=== PATIENT | male | born 1965 | race Caucasian/White ===

== ENCOUNTER 2020-08-26 19:56 | Inpatient (IN) | payer MEDICAID ==
[2020-08-26] VITALS (16 sets, daily range): BP systolic 108–138; BP diastolic 69–97
[~2020-08-26] VITALS: Ht 175.3 cm; Wt 90.7 kg
[2020-08-26] MEDS ORDERED: IPRATROPIUM/ALBUTEROL 0.5-3(2.5)MG/3ML NEB HHN PRN (20:30)
[2020-08-26] MEDS ORDERED: MIDAZOLAM HCL 100 MG in SODIUM CHLORIDE 0.9% 80 ML IV PRN (21:00)
[2020-08-26] MEDS ORDERED: FENTANYL CITRATE/PF 2,500 MCG in SODIUM CHLORIDE 0.9% 200 ML IV PRN (21:00)
[2020-08-26 21:11] LABS: BG BASE EXCESS -1.8 mmol/L (-2.0-2.0); BG DEOXYHEMOGLOBIN 2.7 % (0.0-5.0); BG FRACTION INSPIRED OXYGEN 40; BG HCO3 ACT 23.6 mmol/L (22.0-26.0); BG METHEMOGLOBIN 0.2 % (0.0-1.5); BG OXYGEN SATURATION 97.3 % (92.0-98.5); BG OXYHEMOGLOBIN 96.1 % (94.0-97.0); BG PCO2 42.3 mmHg (35.0-45.0); BG PH 7.364 (7.350-7.450); BG PO2 94.9 mmHg (75.0-100.0); BG SAMPLE SITE RIGHT RADIAL; BG TOTAL HEMOGLOBIN 13.7 g/dL (12.0-18.0); BG VENT MODE VENT - AC
[2020-08-26 21:30] LABS: HEMATOCRIT. 39.6 % (42.0-52.0); HEMOGLOBIN. 12.9 g/dL (14.0-18.0); MEAN CORPUSCULAR HEMOGLOBIN 34.2 pg (28.0-32.0); MEAN CORPUSCULAR VOLUME 104.7 fL (80.0-94.0); MEAN PLATELET VOLUME 9.4 fl (7.4-10.4); PLATELET 163 x1000/uL (130-400); RED BLOOD CELL COUNT 3.78 mill/uL (4.7-6.1); RED CELL DISTRIBUTION WIDTH 14.2 % (11.6-14.6)
[2020-08-26] MEDS ORDERED: CEFEPIME 1,000 MG in DEXTROSE 5% WATER 50 ML IV NR (21:30)
[2020-08-26 21:39] LABS: CHLORIDE 102 mEq/L (98-107)
[2020-08-26] MEDS: DEXT 5%/0.45% NACL 1000ML 1,000 ML IV SCH (21:44)
[2020-08-26 21:45] LABS: INR 1.7; PROTHROMBIN TIME 17.2 sec (9.6-11.0)
[2020-08-26] MEDS: AMIODARONE HCL 900 MG in DEXT 5% WATER 482 ML IV SCH (21:45)
[2020-08-26] MEDS ORDERED: METRONIDAZOLE 500 MG PREMIX 100 ML IV NR (22:00)
[2020-08-26] MEDS ORDERED: VANCOMYCIN 2,000 MG in DEXT 5% WATER 500 ML IV NR (22:00)
[2020-08-26 23:34] LABS: PLATELET ESTIMATE NORMAL
[2020-08-27] VITALS (85 sets, daily range): BP systolic 88–126; BP diastolic 56–86
[2020-08-27] MEDS: PHENYLEPHRINE 100 MG in DEXT 5% WATER 240 ML IV PRN ×3 (00:35→16:40)
[2020-08-27] MEDS: VASOPRESSIN 20 UNIT in SODIUM CHLORIDE 0.9% 99 ML IV PRN ×2 (00:50→09:56)
[2020-08-27] MEDS: BLOOD SUGAR DIAGNOSTIC STRIP TEST SCH ×4 (01:13→18:02)
[2020-08-27 02:46] LABS: HEMATOCRIT. 38.2 % (42.0-52.0); HEMOGLOBIN. 12.6 g/dL (14.0-18.0); MEAN CORPUSCULAR HEMOGLOBIN 34.4 pg (28.0-32.0); MEAN CORPUSCULAR VOLUME 104.6 fL (80.0-94.0); MEAN PLATELET VOLUME 9.2 fl (7.4-10.4); PLATELET 187 x1000/uL (130-400); RED BLOOD CELL COUNT 3.65 mill/uL (4.7-6.1); RED CELL DISTRIBUTION WIDTH 14.4 % (11.6-14.6)
[2020-08-27 02:54] LABS: CHLORIDE 101 mEq/L (98-107)
[2020-08-27 02:59] LABS: PHOSPHORUS 1.5 mg/dL (2.5-4.9)
[2020-08-27 03:02] LABS: T4 FREE 1.15 ng/dL (0.76-1.46)
[2020-08-27] MEDS: METRONIDAZOLE 500 MG PREMIX 100 ML IV SCH ×3 (04:53→21:06)
[2020-08-27] MEDS: IPRATROPIUM/ALBUTEROL 0.5-3(2.5)MG/3ML NEB HHN SCH ×2 (08:48→12:38)
[2020-08-27 09:04] LABS: BG BASE EXCESS -0.1 mmol/L (-2.0-2.0); BG CARBOXYHEMOGLOBIN 0.5 % (0.5-1.5); BG DEOXYHEMOGLOBIN 1.6 % (0.0-5.0); BG FRACTION INSPIRED OXYGEN 40; BG HCO3 ACT 24.6 mmol/L (22.0-26.0); BG METHEMOGLOBIN 0.3 % (0.0-1.5); BG OXYGEN SATURATION 98.4 % (92.0-98.5); BG OXYHEMOGLOBIN 97.6 % (94.0-97.0); BG PCO2 40.4 mmHg (35.0-45.0); BG PH 7.403 (7.350-7.450); BG PO2 109.5 mmHg (75.0-100.0); BG SAMPLE SITE RIGHT RADIAL; BG TOTAL HEMOGLOBIN 12.6 g/dL (12.0-18.0); BG VENT MODE VENT - AC
[2020-08-27] MEDS: PANTOPRAZOLE SODIUM 40 MG/VIAL IV SCH (09:54)
[2020-08-27] MEDS: CEFEPIME 1,000 MG in DEXTROSE 5% WATER 50 ML IV SCH ×2 (10:00→20:06)
[2020-08-27 10:42] LABS: PLATELET ESTIMATE NORMAL
[2020-08-27] MEDS ORDERED: POTASSIUM PHOS,M-BASIC-D-BASIC 20 MMOL in DEXT 5% WATER 243.3333 ML IV SCH (11:00)
[2020-08-27] MEDS ORDERED: MAGNESIUM 2 G PREMIX 50 ML IV SCH (11:00)
[2020-08-27] MEDS: VANCOMYCIN 1250MG in DEXTROSE 5% WATER 250ML IV SCH ×2 (11:47→23:00)
[2020-08-27] MEDS ORDERED: LACTULOSE 20G/30ML UDC PO SCH (14:00)
[2020-08-27] MEDS ORDERED: ALBUMIN HUMAN 25GM/100ML (25%) IV NR (15:00)
[2020-08-27] MEDS ORDERED: IOHEXOL-350 100 ML BOTTLE ONE ×2 (15:15→16:15)
[2020-08-27] MEDS ORDERED: DIGOXIN 500MCG/2ML AMP IV SCH (18:00)
[2020-08-27 20:46] LABS: CLARITY URINE CLEAR (CLEAR); COLOR URINE DARK YELLOW (YELLOW); KETONES URINE NEGATIVE (NEGATIVE); LEUKOCYTE ESTERASE URINE 1+ (NEGATIVE); NITRITE URINE NEGATIVE (NEGATIVE); OCCULT BLOOD URINE 3+ (NEGATIVE); PH URINE 6.5 (4.5-8.0); PROTEIN URINE TRACE (NEGATIVE); SPECIFIC GRAVITY URINE 1.039 (1.005-1.030)
[2020-08-27] MEDS ORDERED: LACTULOSE 300 ML in WATER FOR IRRIGATION,STERILE 700 ML IR NR (21:00)
[2020-08-27] MEDS: AMIODARONE HCL 900 MG in DEXT 5% WATER 482 ML IV SCH (21:28)
[2020-08-27] MEDS: IPRATROPIUM BROMIDE (0.02%) 0.5MG/2.5ML NEB HHN SCH (21:58)
[2020-08-27] MEDS ORDERED: BACITRACIN 50,000 UNITS/VIAL ONE (22:25)
[2020-08-27] MEDS ORDERED: LIDOCAINE HCL 1% 20ML VIAL (Pyxis) INJ ONE (22:25)
[2020-08-27] MEDS ORDERED: BUPIVACAINE HCL/PF 0.5% (5MG/ML) 10ML ONE (22:25)
[2020-08-27] MEDS ORDERED: ALBUMIN HUMAN 25GM/100ML (25%) IV ONE (23:20)
[2020-08-27] MEDS ORDERED: SODIUM BICARBONATE 8.4% 1 MEQ/ML 50ML SYR IV ONE (23:21)
[2020-08-27] MEDS ORDERED: ROCURONIUM BROMIDE 10MG/ML VIAL 5ML IV ONE (23:24)
[2020-08-27] MEDS ORDERED: CALCIUM CHLORIDE 1GM/10ML SYR IV ONE (23:54)
[2020-08-28] VITALS (99 sets, daily range): BP systolic 6–219; BP diastolic 0–159
[2020-08-28] MEDS ORDERED: POTASSIUM CHLORIDE 40MEQ/20ML INJ IV ONE
[2020-08-28] MEDS ORDERED: MAGNESIUM SULFATE 5GM/10ML VIAL IV ONE (00:01)
[2020-08-28] MEDS ORDERED: EPINEPHRINE 10 MG in SODIUM CHLORIDE 0.9% 250 ML IV NR (01:00)
[2020-08-28 01:54] LABS: BG BASE EXCESS -1.4 mmol/L (-2.0-2.0); BG CARBOXYHEMOGLOBIN 0.1 % (0.5-1.5); BG DEOXYHEMOGLOBIN 3.3 % (0.0-5.0); BG FRACTION INSPIRED OXYGEN 40; BG HCO3 ACT 22.9 mmol/L (22.0-26.0); BG METHEMOGLOBIN 0.2 % (0.0-1.5); BG OXYGEN SATURATION 96.7 % (92.0-98.5); BG OXYHEMOGLOBIN 96.4 % (94.0-97.0); BG PCO2 37.1 mmHg (35.0-45.0); BG PH 7.409 (7.350-7.450); BG PO2 87.9 mmHg (75.0-100.0); BG TOTAL HEMOGLOBIN 10.5 g/dL (12.0-18.0); BG VENT MODE VENT - AC
[2020-08-28] MEDS: IPRATROPIUM BROMIDE (0.02%) 0.5MG/2.5ML NEB HHN SCH ×4 (02:03→20:44)
[2020-08-28 02:10] LABS: HEMATOCRIT. 29.6 % (42.0-52.0); HEMOGLOBIN. 9.8 g/dL (14.0-18.0); MEAN CORPUSCULAR HEMOGLOBIN 33.3 pg (28.0-32.0); MEAN CORPUSCULAR VOLUME 100.9 fL (80.0-94.0); PLATELET 141 x1000/uL (130-400); RED BLOOD CELL COUNT 2.93 mill/uL (4.7-6.1); RED CELL DISTRIBUTION WIDTH 16.4 % (11.6-14.6)
[2020-08-28 02:12] LABS: CHLORIDE 105 mEq/L (98-107)
[2020-08-28 02:18] LABS: INR 1.7; PARTIAL THROMBOPLASTIN TIME 51.3 sec (23.4-31.0); PHOSPHORUS 2.6 mg/dL (2.5-4.9); PROTHROMBIN TIME 17.2 sec (9.6-11.0)
[2020-08-28] MEDS: DEXT 5%/0.45% NACL 1000ML 1,000 ML IV SCH ×2 (02:25→02:37)
[2020-08-28 02:33] LABS: DIGOXIN 1.6 ng/mL (0.9-2.0)
[2020-08-28 02:50] LABS: NUCLEATED RED BLOOD CELLS 1 /100 WBC
[2020-08-28 02:51] LABS: PLATELET ESTIMATE NORMAL
[2020-08-28] MEDS: PHENYLEPHRINE 100 MG in DEXT 5% WATER 240 ML IV PRN ×3 (04:53→20:25)
[2020-08-28] MEDS: METRONIDAZOLE 500 MG PREMIX 100 ML IV SCH ×3 (05:01→21:10)
[2020-08-28] MEDS: BLOOD SUGAR DIAGNOSTIC STRIP TEST SCH ×4 (05:33→18:00)
[2020-08-28] MEDS: PANTOPRAZOLE SODIUM 40 MG/VIAL IV SCH (08:54)
[2020-08-28] MEDS: CEFEPIME 1,000 MG in DEXTROSE 5% WATER 50 ML IV SCH ×2 (08:55→20:23)
[2020-08-28 09:22] LABS: BG BASE EXCESS 1.3 mmol/L (-2.0-2.0); BG CARBOXYHEMOGLOBIN 0.4 % (0.5-1.5); BG DEOXYHEMOGLOBIN 1.4 % (0.0-5.0); BG FRACTION INSPIRED OXYGEN 40; BG HCO3 ACT 24.7 mmol/L (22.0-26.0); BG METHEMOGLOBIN 0.3 % (0.0-1.5); BG OXYGEN SATURATION 98.6 % (92.0-98.5); BG OXYHEMOGLOBIN 97.9 % (94.0-97.0); BG PCO2 34.7 mmHg (35.0-45.0); BG PO2 134.7 mmHg (75.0-100.0); BG SAMPLE SITE RIGHT RADIAL; BG TOTAL HEMOGLOBIN 10.4 g/dL (12.0-18.0); BG VENT MODE VENT - AC
[2020-08-28] MEDS ORDERED: DIGOXIN 500MCG/2ML AMP IV PRN (09:30)
[2020-08-28] MEDS: VANCOMYCIN 1250MG in DEXTROSE 5% WATER 250ML IV SCH ×2 (11:20→22:00)
[2020-08-28] MEDS: AMIODARONE HCL 900 MG in DEXT 5% WATER 482 ML IV SCH (14:30)
[2020-08-28 20:46] LABS: HEMATOCRIT 28.1 % (42.0-52.0); HEMOGLOBIN 9.2 g/dL (14.0-18.0)
[2020-08-28 20:58] LABS: INR 1.6; PROTHROMBIN TIME 16.4 sec (9.6-11.0)
[2020-08-29] VITALS (70 sets, daily range): BP systolic 85–135; BP diastolic 38–170
[2020-08-29] MEDS: IPRATROPIUM BROMIDE (0.02%) 0.5MG/2.5ML NEB HHN SCH ×4 (01:39→20:32)
[2020-08-29] MEDS: VASOPRESSIN 20 UNIT in SODIUM CHLORIDE 0.9% 99 ML IV PRN (01:51)
[2020-08-29] MEDS: BLOOD SUGAR DIAGNOSTIC STRIP TEST SCH ×4 (05:19→18:14)
[2020-08-29] MEDS: METRONIDAZOLE 500 MG PREMIX 100 ML IV SCH ×3 (05:20→22:09)
[2020-08-29 08:04] LABS: BG BASE EXCESS 1.8 mmol/L (-2.0-2.0); BG CARBOXYHEMOGLOBIN 0.3 % (0.5-1.5); BG DEOXYHEMOGLOBIN 3.8 % (0.0-5.0); BG FRACTION INSPIRED OXYGEN 35; BG HCO3 ACT 24.5 mmol/L (22.0-26.0); BG METHEMOGLOBIN 0.3 % (0.0-1.5); BG OXYGEN SATURATION 96.2 % (92.0-98.5); BG OXYHEMOGLOBIN 95.6 % (94.0-97.0); BG PCO2 31.3 mmHg (35.0-45.0); BG PH 7.511 (7.350-7.450); BG PO2 79.2 mmHg (75.0-100.0); BG SAMPLE SITE RIGHT RADIAL; BG TOTAL HEMOGLOBIN 9.4 g/dL (12.0-18.0); BG TOTAL RESPIRATORY RATE 22 b/min; BG VENT MODE VENT - AC
[2020-08-29 08:19] LABS: INR 1.6; PROTHROMBIN TIME 16.5 sec (9.6-11.0)
[2020-08-29] MEDS: PANTOPRAZOLE SODIUM 40 MG/VIAL IV SCH (08:27)
[2020-08-29] MEDS: CEFEPIME 1,000 MG in DEXTROSE 5% WATER 50 ML IV SCH ×2 (08:27→20:57)
[2020-08-29] MEDS: DEXT 5%/0.45% NACL 1000ML 1,000 ML IV SCH (08:28)
[2020-08-29 08:33] LABS: HEMATOCRIT. 26.5 % (42.0-52.0); HEMOGLOBIN. 8.8 g/dL (14.0-18.0); MEAN CORPUSCULAR HEMOGLOBIN 33.4 pg (28.0-32.0); MEAN CORPUSCULAR VOLUME 100.8 fL (80.0-94.0); MEAN PLATELET VOLUME 8.9 fl (7.4-10.4); PLATELET 170 x1000/uL (130-400); RED BLOOD CELL COUNT 2.63 mill/uL (4.7-6.1)
[2020-08-29 09:32] LABS: NUCLEATED RED BLOOD CELLS 1 /100 WBC; PLATELET ESTIMATE NORMAL
[2020-08-29 09:44] LABS: CHLORIDE 106 mEq/L (98-107)
[2020-08-29 09:55] LABS: PHOSPHORUS 1.1 mg/dL (2.5-4.9)
[2020-08-29 09:57] LABS: TOTAL IRON BINDING CAPACITY 159 ug/dL (250-450)
[2020-08-29] MEDS: VANCOMYCIN 1250MG in DEXTROSE 5% WATER 250ML IV SCH ×2 (11:08→22:09)
[2020-08-29 11:47] LABS: FERRITIN 283 ng/mL (22-322)
[2020-08-29] MEDS ORDERED: ALBUMIN HUMAN 25GM/100ML (25%) IV NR (13:00)
[2020-08-29 16:54] LABS: VITAMIN B12 SERUM >2000 pg/mL pg/mL (211-911)
[2020-08-29] MEDS: AMIODARONE HCL 900 MG in DEXT 5% WATER 482 ML IV SCH (20:56)
[2020-08-30] VITALS (63 sets, daily range): BP systolic 64–156; BP diastolic 19–97
[2020-08-30] MEDS: IPRATROPIUM BROMIDE (0.02%) 0.5MG/2.5ML NEB HHN SCH ×5 (02:31→20:57)
[2020-08-30] MEDS: DEXT 5%/0.45% NACL 1000ML 1,000 ML IV SCH (04:43)
[2020-08-30] MEDS: BLOOD SUGAR DIAGNOSTIC STRIP TEST SCH ×5 (05:03→23:29)
[2020-08-30] MEDS: METRONIDAZOLE 500 MG PREMIX 100 ML IV SCH ×3 (05:03→21:44)
[2020-08-30 05:53] LABS: CHLORIDE 106 mEq/L (98-107)
[2020-08-30 05:59] LABS: INR 1.6; PROTHROMBIN TIME 16.8 sec (9.6-11.0)
[2020-08-30 06:04] LABS: PHOSPHORUS 1.4 mg/dL (2.5-4.9)
[2020-08-30 06:12] LABS: HEMOGLOBIN. 7.9 g/dL (14.0-18.0); MEAN CORPUSCULAR HEMOGLOBIN 33.2 pg (28.0-32.0); MEAN CORPUSCULAR VOLUME 100.9 fL (80.0-94.0); MEAN PLATELET VOLUME 9.3 fl (7.4-10.4); PLATELET 178 x1000/uL (130-400); RED BLOOD CELL COUNT 2.38 mill/uL (4.7-6.1); RED CELL DISTRIBUTION WIDTH 16.6 % (11.6-14.6)
[2020-08-30] MEDS: PANTOPRAZOLE SODIUM 40 MG/VIAL IV SCH ×2 (08:55→21:37)
[2020-08-30] MEDS: CEFEPIME 1,000 MG in DEXTROSE 5% WATER 50 ML IV SCH ×2 (08:55→20:47)
[2020-08-30 09:12] LABS: BG CARBOXYHEMOGLOBIN 0.5 % (0.5-1.5); BG DEOXYHEMOGLOBIN 1.1 % (0.0-5.0); BG FRACTION INSPIRED OXYGEN 35; BG HCO3 ACT 26.1 mmol/L (22.0-26.0); BG METHEMOGLOBIN 0.5 % (0.0-1.5); BG OXYGEN SATURATION 98.9 % (92.0-98.5); BG OXYHEMOGLOBIN 97.9 % (94.0-97.0); BG PCO2 33.4 mmHg (35.0-45.0); BG PO2 141.7 mmHg (75.0-100.0); BG SAMPLE SITE LEFT RADIAL; BG TOTAL HEMOGLOBIN 8.7 g/dL (12.0-18.0); BG TOTAL RESPIRATORY RATE 22 b/min; BG VENT MODE VENT - AC
[2020-08-30] MEDS: VANCOMYCIN 1250MG in DEXTROSE 5% WATER 250ML IV SCH ×2 (10:37→22:39)
[2020-08-30] MEDS: FOLIC ACID 1MG TABLET NG SCH (10:43)
[2020-08-30] MEDS: METOPROLOL TARTRATE 25MG TABLET PO SCH ×2 (10:43→20:53)
[2020-08-30] MEDS: ASCORBIC ACID 500 MG TABLET NG SCH (10:43)
[2020-08-30] MEDS ORDERED: POTASSIUM PHOS,M-BASIC-D-BASIC 30 MMOL in DEXT 5% WATER 500 ML IV NR (11:00)
[2020-08-30 13:47] LABS: PLATELET ESTIMATE NORMAL
[2020-08-30] MEDS: SUCRALFATE 1 G/10 ML UDC NG SCH ×3 (14:07→23:29)
[2020-08-30] MEDS: FERROUS SULFATE 300MG/5ML UDC NG SCH (17:17)
[2020-08-30] MEDS: LACTULOSE 20G/30ML UDC NG SCH (20:52)
[2020-08-30] MEDS: SENNOSIDES/DOCUSATE SOD 8.6/50MG TABLET NG SCH (20:53)
[2020-08-31] VITALS (75 sets, daily range): BP systolic 80–176; BP diastolic 29–105
[2020-08-31] MEDS: IPRATROPIUM BROMIDE (0.02%) 0.5MG/2.5ML NEB HHN SCH ×4 (01:43→20:43)
[2020-08-31] MEDS: DEXT 5%/0.45% NACL 1000ML 1,000 ML IV SCH ×2 (04:30→22:00)
[2020-08-31] MEDS: METRONIDAZOLE 500 MG PREMIX 100 ML IV SCH ×3 (05:48→22:00)
[2020-08-31 05:49] LABS: BASOPHILS % 0.5 % (0.0-2.0); HEMATOCRIT. 27.9 % (42.0-52.0); HEMOGLOBIN. 9.4 g/dL (14.0-18.0); MEAN CORPUSCULAR HEMOGLOBIN 34.4 pg (28.0-32.0); MEAN CORPUSCULAR VOLUME 101.7 fL (80.0-94.0); MEAN PLATELET VOLUME 9.6 fl (7.4-10.4); MONOCYTES % 12.2 % (2.0-8.0); NEUTROPHILS % 77.3 % (40.0-76.0); PLATELET 264 x1000/uL (130-400); RED BLOOD CELL COUNT 2.74 mill/uL (4.7-6.1); RED CELL DISTRIBUTION WIDTH 16.8 % (11.6-14.6)
[2020-08-31 05:54] LABS: CHLORIDE 109 mEq/L (98-107)
[2020-08-31 06:03] LABS: PHOSPHORUS 2.3 mg/dL (2.5-4.9)
[2020-08-31 06:27] LABS: INR 1.6; PROTHROMBIN TIME 16.2 sec (9.6-11.0)
[2020-08-31] MEDS: SUCRALFATE 1 G/10 ML UDC NG SCH ×3 (06:48→17:37)
[2020-08-31] MEDS: BLOOD SUGAR DIAGNOSTIC STRIP TEST SCH ×3 (06:48→17:37)
[2020-08-31 07:46] LABS: BG BASE EXCESS 0.6 mmol/L (-2.0-2.0); BG CARBOXYHEMOGLOBIN 0.3 % (0.5-1.5); BG DEOXYHEMOGLOBIN 1.7 % (0.0-5.0); BG FRACTION INSPIRED OXYGEN 35; BG HCO3 ACT 23.5 mmol/L (22.0-26.0); BG METHEMOGLOBIN 0.3 % (0.0-1.5); BG OXYGEN SATURATION 98.3 % (92.0-98.5); BG OXYHEMOGLOBIN 97.7 % (94.0-97.0); BG PCO2 31.5 mmHg (35.0-45.0); BG PH 7.491 (7.350-7.450); BG PO2 125.7 mmHg (75.0-100.0); BG SAMPLE SITE ALINE; BG TOTAL RESPIRATORY RATE 22 b/min; BG VENT MODE VENT - AC
[2020-08-31] MEDS: PANTOPRAZOLE SODIUM 40 MG/VIAL IV SCH ×2 (08:38→21:23)
[2020-08-31] MEDS: FERROUS SULFATE 300MG/5ML UDC NG SCH ×2 (08:38→17:37)
[2020-08-31] MEDS: FOLIC ACID 1MG TABLET NG SCH (08:38)
[2020-08-31] MEDS: THIAMINE HCL 100MG TABLET PO SCH (08:38)
[2020-08-31] MEDS: ASCORBIC ACID 500 MG TABLET NG SCH (08:39)
[2020-08-31] MEDS: METOPROLOL TARTRATE 25MG TABLET PO SCH ×2 (08:39→21:23)
[2020-08-31] MEDS: CEFEPIME 1,000 MG in DEXTROSE 5% WATER 50 ML IV SCH ×2 (10:36→20:46)
[2020-08-31] MEDS: VANCOMYCIN 1250MG in DEXTROSE 5% WATER 250ML IV SCH (10:37)
[2020-08-31] MEDS ORDERED: HYDROCODONE/ACETAMINOPHEN 5/325MG TABLET PO PRN (11:30)
[2020-08-31 12:33] LABS: BG BASE EXCESS -1.5 mmol/L (-2.0-2.0); BG CARBOXYHEMOGLOBIN 0.3 % (0.5-1.5); BG DEOXYHEMOGLOBIN 1.5 % (0.0-5.0); BG FRACTION INSPIRED OXYGEN 35; BG HCO3 ACT 20.9 mmol/L (22.0-26.0); BG METHEMOGLOBIN 0.2 % (0.0-1.5); BG OXYGEN SATURATION 98.5 % (92.0-98.5); BG PCO2 27.2 mmHg (35.0-45.0); BG PH 7.503 (7.350-7.450); BG PO2 137.2 mmHg (75.0-100.0); BG SAMPLE SITE ALINE; BG TOTAL HEMOGLOBIN 9.4 g/dL (12.0-18.0); BG VENT MODE VENT - CPAP
[2020-08-31] MEDS: MIDODRINE HCL 5MG TABLET PO SCH ×3 (13:00→17:37)
[2020-08-31] MEDS: SENNOSIDES/DOCUSATE SOD 8.6/50MG TABLET NG SCH (21:23)
[2020-08-31] MEDS: LACTULOSE 20G/30ML UDC NG SCH (21:23)
[2020-09-01] VITALS (71 sets, daily range): BP systolic 76–193; BP diastolic 38–87
[2020-09-01] MEDS: VANCOMYCIN 1250MG in DEXTROSE 5% WATER 250ML IV SCH (00:08)
[2020-09-01] MEDS: SUCRALFATE 1 G/10 ML UDC NG SCH ×4 (00:13→18:18)
[2020-09-01] MEDS: BLOOD SUGAR DIAGNOSTIC STRIP TEST SCH ×4 (00:20→18:19)
[2020-09-01] MEDS ORDERED: METOPROLOL TARTRATE 25MG TABLET PO NR (01:30)
[2020-09-01] MEDS: IPRATROPIUM BROMIDE (0.02%) 0.5MG/2.5ML NEB HHN SCH ×4 (02:12→20:13)
[2020-09-01 04:37] LABS: HEMATOCRIT. 31.5 % (42.0-52.0); HEMOGLOBIN. 10.5 g/dL (14.0-18.0); MEAN CORPUSCULAR HEMOGLOBIN 33.7 pg (28.0-32.0); MEAN PLATELET VOLUME 8.8 fl (7.4-10.4); PLATELET 360 x1000/uL (130-400); RED BLOOD CELL COUNT 3.12 mill/uL (4.7-6.1)
[2020-09-01 04:43] LABS: CHLORIDE 107 mEq/L (98-107)
[2020-09-01] MEDS ORDERED: DIGOXIN 500MCG/2ML AMP IV SCH (08:30)
[2020-09-01 08:35] LABS: PHOSPHORUS 2.4 mg/dL (2.5-4.9)
[2020-09-01] MEDS: METOPROLOL TARTRATE 50MG TABLET PO SCH ×2 (08:40→21:00)
[2020-09-01] MEDS: FERROUS SULFATE 300MG/5ML UDC NG SCH ×2 (08:44→18:18)
[2020-09-01] MEDS: PANTOPRAZOLE SODIUM 40 MG/VIAL IV SCH ×2 (08:44→21:43)
[2020-09-01] MEDS: FOLIC ACID 1MG TABLET NG SCH (08:45)
[2020-09-01] MEDS: ASCORBIC ACID 500 MG TABLET NG SCH (08:45)
[2020-09-01] MEDS: MIDODRINE HCL 5MG TABLET PO SCH ×3 (08:45→17:00)
[2020-09-01] MEDS: THIAMINE HCL 100MG TABLET PO SCH (08:45)
[2020-09-01] MEDS ORDERED: LORAZEPAM 2MG/ML CPJ IV PRN (09:15)
[2020-09-01 10:10] LABS: PLATELET ESTIMATE NORMAL
[2020-09-01] MEDS ORDERED: POTASSIUM PHOS,M-BASIC-D-BASIC 10 MMOL in DEXT 5% WATER 246.6667 ML IV NR (11:00)
[2020-09-01] MEDS ORDERED: BACITRACIN 50,000 UNITS/VIAL ONE (13:39)
[2020-09-01] MEDS: DIGOXIN 500MCG/2ML AMP IV SCH (18:18)
[2020-09-01] MEDS: DEXT 5%/0.45% NACL 1000ML 1,000 ML IV SCH (18:18)
[2020-09-01] MEDS: MORPHINE SULFATE 2 MG/ML CPJ (NOT FOR IM USE) IV PRN (19:00)
[2020-09-01] MEDS: SENNOSIDES/DOCUSATE SOD 8.6/50MG TABLET NG SCH ×2 (21:00→21:39)
[2020-09-01] MEDS: LACTULOSE 20G/30ML UDC NG SCH (21:39)
[2020-09-02] VITALS (90 sets, daily range): BP systolic 56–150; BP diastolic 39–77
[2020-09-02] MEDS ORDERED: NOREPINEPHRINE 8MG/250ML PMX 250 ML IV PRN
[2020-09-02] MEDS ORDERED: NOREPINEPHRINE 8 MG in DEXTROSE 5% WATER 250 ML IV PRN (00:45)
[2020-09-02] MEDS: DEXT 5%/0.45% NACL 1000ML 1,000 ML IV SCH ×3 (01:22→20:57)
[2020-09-02] MEDS: SUCRALFATE 1 G/10 ML UDC NG SCH ×4 (01:22→17:33)
[2020-09-02] MEDS: BLOOD SUGAR DIAGNOSTIC STRIP TEST SCH ×4 (01:44→17:33)
[2020-09-02] MEDS: IPRATROPIUM BROMIDE (0.02%) 0.5MG/2.5ML NEB HHN SCH ×3 (02:06→20:12)
[2020-09-02] MEDS: MORPHINE SULFATE 2 MG/ML CPJ (NOT FOR IM USE) IV PRN (02:28)
[2020-09-02 05:40] LABS: CHLORIDE 111 mEq/L (98-107); HEMATOCRIT. 29.9 % (42.0-52.0); MEAN CORPUSCULAR HEMOGLOBIN 33.6 pg (28.0-32.0); MEAN PLATELET VOLUME 8.9 fl (7.4-10.4); PLATELET 366 x1000/uL (130-400); RED BLOOD CELL COUNT 2.99 mill/uL (4.7-6.1)
[2020-09-02 06:02] LABS: DIGOXIN 0.8 ng/mL (0.9-2.0)
[2020-09-02 08:07] LABS: BG BASE EXCESS -1.6 mmol/L (-2.0-2.0); BG CARBOXYHEMOGLOBIN 0.7 % (0.5-1.5); BG DEOXYHEMOGLOBIN 6.2 % (0.0-5.0); BG HCO3 ACT 21.1 mmol/L (22.0-26.0); BG METHEMOGLOBIN 0.2 % (0.0-1.5); BG OXYGEN SATURATION 93.7 % (92.0-98.5); BG OXYHEMOGLOBIN 92.9 % (94.0-97.0); BG PCO2 29.1 mmHg (35.0-45.0); BG PH 7.478 (7.350-7.450); BG PO2 65.6 mmHg (75.0-100.0); BG SAMPLE SITE ALINE; BG TOTAL HEMOGLOBIN 11.1 g/dL (12.0-18.0); BG VENT MODE VENT - AC
[2020-09-02] MEDS: METOPROLOL TARTRATE 50MG TABLET PO SCH ×2 (09:00→20:53)
[2020-09-02] MEDS: FOLIC ACID 1MG TABLET NG SCH (09:06)
[2020-09-02] MEDS: FERROUS SULFATE 300MG/5ML UDC NG SCH ×2 (09:06→16:50)
[2020-09-02] MEDS: PANTOPRAZOLE SODIUM 40 MG/VIAL IV SCH ×2 (09:06→20:53)
[2020-09-02] MEDS: ASCORBIC ACID 500 MG TABLET NG SCH (09:06)
[2020-09-02] MEDS: MIDODRINE HCL 5MG TABLET PO SCH ×3 (09:06→16:50)
[2020-09-02] MEDS: THIAMINE HCL 100MG TABLET PO SCH (09:08)
[2020-09-02 10:43] LABS: PLATELET ESTIMATE NORMAL
[2020-09-02] MEDS: DIGOXIN 500MCG/2ML AMP IV SCH (17:33)
[2020-09-02] MEDS: SENNOSIDES/DOCUSATE SOD 8.6/50MG TABLET NG SCH (20:53)
[2020-09-02] MEDS: LACTULOSE 20G/30ML UDC NG SCH (20:57)
[2020-09-03] VITALS (86 sets, daily range): BP systolic 72–127; BP diastolic 16–89
[2020-09-03] MEDS: BLOOD SUGAR DIAGNOSTIC STRIP TEST SCH ×5 (00:29→23:33)
[2020-09-03] MEDS: IPRATROPIUM BROMIDE (0.02%) 0.5MG/2.5ML NEB HHN SCH ×4 (02:04→20:20)
[2020-09-03] MEDS: SUCRALFATE 1 G/10 ML UDC NG SCH ×5 (03:40→23:34)
[2020-09-03 05:37] LABS: HEMATOCRIT. 30.2 % (42.0-52.0); HEMOGLOBIN. 9.9 g/dL (14.0-18.0); MEAN CORPUSCULAR HEMOGLOBIN 33.1 pg (28.0-32.0); MEAN CORPUSCULAR VOLUME 100.5 fL (80.0-94.0); MEAN PLATELET VOLUME 9.1 fl (7.4-10.4); PLATELET 388 x1000/uL (130-400); RED CELL DISTRIBUTION WIDTH 16.9 % (11.6-14.6)
[2020-09-03 05:49] LABS: CHLORIDE 111 mEq/L (98-107)
[2020-09-03 07:07] LABS: PLATELET ESTIMATE NORMAL
[2020-09-03] MEDS: DEXT 5%/0.45% NACL 1000ML 1,000 ML IV SCH ×2 (07:43→17:05)
[2020-09-03 08:09] LABS: BG BASE EXCESS -0.9 mmol/L (-2.0-2.0); BG CARBOXYHEMOGLOBIN 0.1 % (0.5-1.5); BG DEOXYHEMOGLOBIN 1.1 % (0.0-5.0); BG HCO3 ACT 22.4 mmol/L (22.0-26.0); BG METHEMOGLOBIN 0.3 % (0.0-1.5); BG OXYGEN SATURATION 98.9 % (92.0-98.5); BG OXYHEMOGLOBIN 98.5 % (94.0-97.0); BG PCO2 32.2 mmHg (35.0-45.0); BG PH 7.461 (7.350-7.450); BG PO2 142.6 mmHg (75.0-100.0); BG SAMPLE SITE RIGHT RADIAL; BG TOTAL HEMOGLOBIN 9.4 g/dL (12.0-18.0); BG VENT MODE VENT - AC
[2020-09-03] MEDS: METOPROLOL TARTRATE 50MG TABLET PO SCH (09:00)
[2020-09-03] MEDS: THIAMINE HCL 100MG TABLET PO SCH (09:59)
[2020-09-03] MEDS: FERROUS SULFATE 300MG/5ML UDC NG SCH ×2 (09:59→17:10)
[2020-09-03] MEDS: PANTOPRAZOLE SODIUM 40 MG/VIAL IV SCH ×2 (09:59→21:13)
[2020-09-03] MEDS: FOLIC ACID 1MG TABLET NG SCH (09:59)
[2020-09-03] MEDS: ASCORBIC ACID 500 MG TABLET NG SCH (09:59)
[2020-09-03] MEDS: MIDODRINE HCL 5MG TABLET PO SCH ×3 (10:00→17:10)
[2020-09-03] MEDS ORDERED: POTASSIUM CHLORIDE 20MEQ TABLET SR PO SCH (12:15)
[2020-09-03] MEDS: DIGOXIN 500MCG/2ML AMP IV SCH (17:10)
[2020-09-03 17:40] LABS: BG BASE EXCESS -1.5 mmol/L (-2.0-2.0); BG CARBOXYHEMOGLOBIN 0.3 % (0.5-1.5); BG DEOXYHEMOGLOBIN 1.3 % (0.0-5.0); BG METHEMOGLOBIN 0.2 % (0.0-1.5); BG OXYGEN SATURATION 98.7 % (92.0-98.5); BG OXYHEMOGLOBIN 98.2 % (94.0-97.0); BG PCO2 28.5 mmHg (35.0-45.0); BG PH 7.486 (7.350-7.450); BG PO2 136.2 mmHg (75.0-100.0); BG SAMPLE SITE ALINE; BG TOTAL HEMOGLOBIN 10.8 g/dL (12.0-18.0); BG VENT MODE VENT - SIMV
[2020-09-03] MEDS: SENNOSIDES/DOCUSATE SOD 8.6/50MG TABLET NG SCH (21:13)
[2020-09-03] MEDS: METOPROLOL TARTRATE 25MG TABLET PO SCH (21:13)
[2020-09-03] MEDS: LACTULOSE 20G/30ML UDC NG SCH (21:13)
[2020-09-04] VITALS (46 sets, daily range): BP systolic 68–124; BP diastolic 34–99
[2020-09-04] MEDS: MORPHINE SULFATE 2 MG/ML CPJ (NOT FOR IM USE) IV PRN (01:01)
[2020-09-04] MEDS: IPRATROPIUM BROMIDE (0.02%) 0.5MG/2.5ML NEB HHN SCH ×4 (02:15→21:15)
[2020-09-04 05:54] LABS: BASOPHILS % 1.2 % (0.0-2.0); EOSINOPHILS % 1.8 % (0.0-5.0); HEMATOCRIT. 31.9 % (42.0-52.0); HEMOGLOBIN. 10.7 g/dL (14.0-18.0); LYMPHOCYTES % 9.2 % (20.0-50.0); MEAN CORPUSCULAR HEMOGLOBIN 33.8 pg (28.0-32.0); MEAN PLATELET VOLUME 8.9 fl (7.4-10.4); MONOCYTES % 7.3 % (2.0-8.0); NEUTROPHILS % 80.5 % (40.0-76.0); PLATELET 383 x1000/uL (130-400); RED BLOOD CELL COUNT 3.15 mill/uL (4.7-6.1); RED CELL DISTRIBUTION WIDTH 16.7 % (11.6-14.6)
[2020-09-04] MEDS: BLOOD SUGAR DIAGNOSTIC STRIP TEST SCH ×3 (06:08→17:33)
[2020-09-04] MEDS: SUCRALFATE 1 G/10 ML UDC NG SCH ×3 (06:08→17:33)
[2020-09-04 07:26] LABS: CHLORIDE 111 mEq/L (98-107)
[2020-09-04 07:48] LABS: DIGOXIN 0.8 ng/mL (0.9-2.0)
[2020-09-04 08:18] LABS: BG BASE EXCESS -0.2 mmol/L (-2.0-2.0); BG CARBOXYHEMOGLOBIN 0.3 % (0.5-1.5); BG DEOXYHEMOGLOBIN 1.7 % (0.0-5.0); BG FRACTION INSPIRED OXYGEN 35; BG HCO3 ACT 22.8 mmol/L (22.0-26.0); BG METHEMOGLOBIN 0.3 % (0.0-1.5); BG OXYGEN SATURATION 98.3 % (92.0-98.5); BG OXYHEMOGLOBIN 97.7 % (94.0-97.0); BG PCO2 32.3 mmHg (35.0-45.0); BG PH 7.466 (7.350-7.450); BG PO2 135.6 mmHg (75.0-100.0); BG SAMPLE SITE RIGHT RADIAL; BG VENT MODE VENT - SIMV
[2020-09-04] MEDS: FERROUS SULFATE 300MG/5ML UDC NG SCH ×2 (09:20→17:33)
[2020-09-04] MEDS: PANTOPRAZOLE SODIUM 40 MG/VIAL IV SCH ×2 (09:20→21:35)
[2020-09-04] MEDS: FOLIC ACID 1MG TABLET NG SCH (09:21)
[2020-09-04] MEDS: MIDODRINE HCL 5MG TABLET PO SCH ×3 (09:21→17:33)
[2020-09-04] MEDS: ASCORBIC ACID 500 MG TABLET NG SCH (09:21)
[2020-09-04] MEDS: THIAMINE HCL 100MG TABLET PO SCH (09:21)
[2020-09-04] MEDS: METOPROLOL TARTRATE 25MG TABLET PO SCH ×2 (09:22→21:36)
[2020-09-04 11:31] LABS: BG BASE EXCESS -1.6 mmol/L (-2.0-2.0); BG CARBOXYHEMOGLOBIN 0.3 % (0.5-1.5); BG DEOXYHEMOGLOBIN 1.3 % (0.0-5.0); BG FRACTION INSPIRED OXYGEN 35; BG METHEMOGLOBIN 0.4 % (0.0-1.5); BG OXYGEN SATURATION 98.7 % (92.0-98.5); BG PCO2 28.9 mmHg (35.0-45.0); BG SAMPLE SITE RIGHT RADIAL; BG TOTAL HEMOGLOBIN 11.2 g/dL (12.0-18.0); BG VENT MODE VENT - CPAP
[2020-09-04] MEDS: DEXT 5%/0.45% NACL 1000ML 1,000 ML IV SCH ×2 (13:00→14:12)
[2020-09-04] MEDS: DIGOXIN 500MCG/2ML AMP IV SCH (17:33)
[2020-09-04] MEDS: LACTULOSE 20G/30ML UDC NG SCH (21:35)
[2020-09-04] MEDS: SENNOSIDES/DOCUSATE SOD 8.6/50MG TABLET NG SCH (21:36)
[2020-09-05] VITALS (43 sets, daily range): BP systolic 85–129; BP diastolic 35–75
[2020-09-05] MEDS: SUCRALFATE 1 G/10 ML UDC NG SCH ×5 (00:57→23:23)
[2020-09-05] MEDS: IPRATROPIUM BROMIDE (0.02%) 0.5MG/2.5ML NEB HHN SCH ×4 (02:27→20:30)
[2020-09-05 05:00] LABS: CHLORIDE 111 mEq/L (98-107)
[2020-09-05 05:01] LABS: HEMATOCRIT. 31.6 % (42.0-52.0); HEMOGLOBIN. 10.6 g/dL (14.0-18.0); MEAN CORPUSCULAR VOLUME 101.1 fL (80.0-94.0); MEAN PLATELET VOLUME 8.8 fl (7.4-10.4); PLATELET 376 x1000/uL (130-400); RED BLOOD CELL COUNT 3.12 mill/uL (4.7-6.1); RED CELL DISTRIBUTION WIDTH 16.5 % (11.6-14.6)
[2020-09-05] MEDS: BLOOD SUGAR DIAGNOSTIC STRIP TEST SCH ×5 (05:32→23:23)
[2020-09-05] MEDS: METOPROLOL TARTRATE 25MG TABLET PO SCH ×2 (09:00→13:45)
[2020-09-05] MEDS: MIDODRINE HCL 5MG TABLET PO SCH ×4 (09:00→17:39)
[2020-09-05 10:27] LABS: PLATELET ESTIMATE NORMAL
[2020-09-05] MEDS: PANTOPRAZOLE SODIUM 40 MG/VIAL IV SCH ×2 (10:29→20:43)
[2020-09-05] MEDS: PIPERACILLIN/TAZOBACTAM 3.375 G in DEXT 5% WATER 100 ML IV SCH ×3 (13:45→23:23)
[2020-09-05] MEDS: FOLIC ACID 1MG TABLET NG SCH (13:46)
[2020-09-05] MEDS: THIAMINE HCL 100MG TABLET PO SCH (13:46)
[2020-09-05] MEDS: FERROUS SULFATE 300MG/5ML UDC NG SCH ×2 (13:46→17:39)
[2020-09-05] MEDS: ASCORBIC ACID 500 MG TABLET NG SCH (13:46)
[2020-09-05] MEDS: DEXT 5%/0.45% NACL 1000ML 1,000 ML IV SCH ×3 (14:07→20:56)
[2020-09-05] MEDS ORDERED: DIGOXIN 500MCG/2ML AMP IV PRN (15:15)
[2020-09-05 16:54] LABS: CLARITY URINE CLEAR (CLEAR); COLOR URINE DARK YELLOW (YELLOW); KETONES URINE NEGATIVE (NEGATIVE); LEUKOCYTE ESTERASE URINE TRACE (NEGATIVE); NITRITE URINE NEGATIVE (NEGATIVE); OCCULT BLOOD URINE 1+ (NEGATIVE); PH URINE 5.5 (4.5-8.0); PROTEIN URINE 1+ (NEGATIVE); SPECIFIC GRAVITY URINE 1.028 (1.005-1.030); UROBILINOGEN URINE 0.2 E.U./dL (0.2-1.0)
[2020-09-05] MEDS: LACTULOSE 20G/30ML UDC NG SCH (20:43)
[2020-09-05] MEDS: SENNOSIDES/DOCUSATE SOD 8.6/50MG TABLET NG SCH (20:43)
[2020-09-06] VITALS (24 sets, daily range): BP systolic 84–150; BP diastolic 18–78
[2020-09-06] MEDS: IPRATROPIUM BROMIDE (0.02%) 0.5MG/2.5ML NEB HHN SCH ×2 (02:00→08:49)
[2020-09-06] MEDS: BLOOD SUGAR DIAGNOSTIC STRIP TEST SCH ×4 (05:30→23:00)
[2020-09-06] MEDS: SUCRALFATE 1 G/10 ML UDC NG SCH ×4 (05:30→23:00)
[2020-09-06] MEDS: PIPERACILLIN/TAZOBACTAM 3.375 G in DEXT 5% WATER 100 ML IV SCH ×4 (05:30→23:00)
[2020-09-06] MEDS: DEXT 5%/0.45% NACL 1000ML 1,000 ML IV SCH (05:31)
[2020-09-06 05:41] LABS: HEMATOCRIT. 32.7 % (42.0-52.0); HEMOGLOBIN. 10.9 g/dL (14.0-18.0); MEAN CORPUSCULAR HEMOGLOBIN 33.5 pg (28.0-32.0); PLATELET 382 x1000/uL (130-400); RED BLOOD CELL COUNT 3.24 mill/uL (4.7-6.1); RED CELL DISTRIBUTION WIDTH 16.3 % (11.6-14.6)
[2020-09-06 05:47] LABS: CHLORIDE 109 mEq/L (98-107)
[2020-09-06 05:58] LABS: PHOSPHORUS 2.6 mg/dL (2.5-4.9)
[2020-09-06] MEDS: FOLIC ACID 1MG TABLET NG SCH (09:04)
[2020-09-06] MEDS: METOPROLOL TARTRATE 25MG TABLET PO SCH ×2 (09:04→20:41)
[2020-09-06] MEDS: FERROUS SULFATE 300MG/5ML UDC NG SCH ×2 (09:04→17:00)
[2020-09-06] MEDS: THIAMINE HCL 100MG TABLET PO SCH (09:04)
[2020-09-06] MEDS: MIDODRINE HCL 5MG TABLET PO SCH ×3 (09:04→17:00)
[2020-09-06] MEDS: ASCORBIC ACID 500 MG TABLET NG SCH (09:04)
[2020-09-06] MEDS: PANTOPRAZOLE SODIUM 40 MG/VIAL IV SCH ×2 (09:05→20:43)
[2020-09-06] MEDS ORDERED: POTASSIUM CHLORIDE 20MEQ TABLET SR PO NR (10:45)
[2020-09-06 10:56] LABS: PLATELET ESTIMATE NORMAL
[2020-09-06] MEDS: RISPERIDONE 1MG TABLET PO SCH (17:11)
[2020-09-06] MEDS: LORAZEPAM 2MG/ML CPJ IV PRN ×2 (17:11→23:07)
[2020-09-06] MEDS: DIGOXIN 500MCG/2ML AMP IV SCH (17:39)
[2020-09-06] MEDS: LACTULOSE 20G/30ML UDC NG SCH (20:43)
[2020-09-06] MEDS: SENNOSIDES/DOCUSATE SOD 8.6/50MG TABLET NG SCH (20:43)
[2020-09-06] MEDS ORDERED: ZOLPIDEM TARTRATE 5MG TABLET PO PRN (21:00)
[2020-09-07] VITALS (22 sets, daily range): BP systolic 3–121; BP diastolic -3–76
[2020-09-07] MEDS: DEXT 5%/0.45% NACL KCL 20MEQ/L 1,000 ML IV SCH ×3 (01:10→22:12)
[2020-09-07] MEDS: LORAZEPAM 2MG/ML CPJ IV PRN (03:53)
[2020-09-07] MEDS: SUCRALFATE 1 G/10 ML UDC NG SCH ×4 (05:06→23:11)
[2020-09-07 05:45] LABS: CHLORIDE 109 mEq/L (98-107)
[2020-09-07 05:53] LABS: INR 1.6; PARTIAL THROMBOPLASTIN TIME 41.6 sec (23.4-31.0); PROTHROMBIN TIME 16.8 sec (9.6-11.0)
[2020-09-07 06:00] LABS: HEMATOCRIT. 32.5 % (42.0-52.0); HEMOGLOBIN. 10.5 g/dL (14.0-18.0); MEAN CORPUSCULAR HEMOGLOBIN 33.2 pg (28.0-32.0); MEAN CORPUSCULAR VOLUME 102.3 fL (80.0-94.0); MEAN PLATELET VOLUME 9.3 fl (7.4-10.4); PLATELET 392 x1000/uL (130-400); RED BLOOD CELL COUNT 3.18 mill/uL (4.7-6.1); RED CELL DISTRIBUTION WIDTH 16.8 % (11.6-14.6)
[2020-09-07] MEDS: BLOOD SUGAR DIAGNOSTIC STRIP TEST SCH ×4 (06:32→23:11)
[2020-09-07] MEDS: PIPERACILLIN/TAZOBACTAM 3.375 G in DEXT 5% WATER 100 ML IV SCH ×4 (06:32→23:11)
[2020-09-07] MEDS: MIDODRINE HCL 5MG TABLET PO SCH ×3 (08:53→17:06)
[2020-09-07] MEDS: FERROUS SULFATE 300MG/5ML UDC NG SCH ×2 (08:54→17:06)
[2020-09-07] MEDS: METOPROLOL TARTRATE 25MG TABLET PO SCH ×2 (08:54→20:22)
[2020-09-07] MEDS: ASCORBIC ACID 500 MG TABLET NG SCH (08:55)
[2020-09-07] MEDS: FOLIC ACID 1MG TABLET NG SCH (08:55)
[2020-09-07] MEDS: THIAMINE HCL 100MG TABLET PO SCH (08:55)
[2020-09-07] MEDS: RISPERIDONE 1MG TABLET PO SCH ×2 (08:55→17:06)
[2020-09-07] MEDS: PANTOPRAZOLE SODIUM 40 MG/VIAL IV SCH ×2 (09:09→20:22)
[2020-09-07] MEDS ORDERED: LIDOCAINE HCL 1% 20ML VIAL (Pyxis) INJ ONE (10:10)
[2020-09-07] MEDS ORDERED: BACITRACIN 15GM TUBE TOP ONE ×2 (10:11→11:49)
[2020-09-07] MEDS ORDERED: BUPIVACAINE HCL/PF 0.5% (5MG/ML) 10ML ONE (10:12)
[2020-09-07] MEDS ORDERED: BACITRACIN 50,000 UNITS/VIAL ONE ×2 (10:12→11:20)
[2020-09-07 10:22] LABS: PLATELET ESTIMATE NORMAL
[2020-09-07] MEDS ORDERED: ROCURONIUM BROMIDE 10MG/ML VIAL 5ML IV ONE (10:59)
[2020-09-07] MEDS ORDERED: HYDROMORPHONE HCL/PF 2MG/ML (OR) ONE (10:59)
[2020-09-07] MEDS ORDERED: DEXAMETHASONE 4MG/ML 1ML VIAL ONE (11:00)
[2020-09-07] MEDS ORDERED: VASOPRESSIN 20 UNIT/ML 1ML ONE (11:04)
[2020-09-07] MEDS ORDERED: AMIODARONE HCL 50MG/ML 3ML VIAL IV ONE (11:20)
[2020-09-07] MEDS ORDERED: ALBUMIN HUMAN 25GM/100ML (25%) IV ONE (11:20)
[2020-09-07] MEDS ORDERED: NEOSTIGMINE METHYLSULFATE 1MG/ML 10 ML VIAL ONE (12:00)
[2020-09-07] MEDS: METOPROLOL TARTRATE 5MG/5ML VIAL IV PRN (13:34)
[2020-09-07] MEDS: DIGOXIN 500MCG/2ML AMP IV SCH (17:06)
[2020-09-07] MEDS: SENNOSIDES/DOCUSATE SOD 8.6/50MG TABLET NG SCH (20:22)
[2020-09-07] MEDS: LACTULOSE 20G/30ML UDC NG SCH (20:22)
[2020-09-07] MEDS: INSULIN LISPRO 100 UNITS/ML SUBCUT SCH (23:48)
[2020-09-08] VITALS (69 sets, daily range): BP systolic 2–133; BP diastolic -12–105
[2020-09-08 05:00] LABS: HEMATOCRIT. 31.9 % (42.0-52.0); HEMOGLOBIN. 10.3 g/dL (14.0-18.0); MEAN CORPUSCULAR HEMOGLOBIN 33.1 pg (28.0-32.0); MEAN CORPUSCULAR VOLUME 102.4 fL (80.0-94.0); MEAN PLATELET VOLUME 9.1 fl (7.4-10.4); PLATELET 380 x1000/uL (130-400); RED BLOOD CELL COUNT 3.12 mill/uL (4.7-6.1); RED CELL DISTRIBUTION WIDTH 16.2 % (11.6-14.6)
[2020-09-08] MEDS: SUCRALFATE 1 G/10 ML UDC NG SCH ×4 (05:19→18:23)
[2020-09-08] MEDS: INSULIN LISPRO 100 UNITS/ML SUBCUT SCH ×3 (05:19→18:00)
[2020-09-08] MEDS: BLOOD SUGAR DIAGNOSTIC STRIP TEST SCH ×3 (05:19→18:39)
[2020-09-08] MEDS: PIPERACILLIN/TAZOBACTAM 3.375 G in DEXT 5% WATER 100 ML IV SCH ×4 (05:20→23:53)
[2020-09-08 05:42] LABS: CHLORIDE 108 mEq/L (98-107)
[2020-09-08 06:14] LABS: DIGOXIN 0.8 ng/mL (0.9-2.0)
[2020-09-08 06:53] LABS: PLATELET ESTIMATE NORMAL
[2020-09-08] MEDS: PANTOPRAZOLE SODIUM 40 MG/VIAL IV SCH ×2 (09:14→21:32)
[2020-09-08] MEDS: RISPERIDONE 1MG TABLET PO SCH ×2 (09:15→16:23)
[2020-09-08] MEDS: MIDODRINE HCL 5MG TABLET PO SCH ×3 (09:15→16:24)
[2020-09-08] MEDS: FERROUS SULFATE 300MG/5ML UDC NG SCH ×2 (09:15→16:23)
[2020-09-08] MEDS: FOLIC ACID 1MG TABLET NG SCH (09:15)
[2020-09-08] MEDS: THIAMINE HCL 100MG TABLET PO SCH (09:16)
[2020-09-08] MEDS: ASCORBIC ACID 500 MG TABLET NG SCH (09:16)
[2020-09-08] MEDS: METOPROLOL TARTRATE 25MG TABLET PO SCH ×2 (09:16→21:33)
[2020-09-08] MEDS: INSULIN GLARGINE UD 100 UNITS/ML SYR SUBCUT SCH ×2 (09:18→21:50)
[2020-09-08] MEDS: DEXT 5%/0.45% NACL KCL 20MEQ/L 1,000 ML IV SCH ×2 (09:43→16:23)
[2020-09-08] MEDS: LORAZEPAM 2MG/ML CPJ IV PRN ×3 (10:02→23:53)
[2020-09-08] MEDS ORDERED: LIDOCAINE HCL 1% 20ML VIAL (Pyxis) INJ ONE (10:17)
[2020-09-08] MEDS: DIGOXIN 500MCG/2ML AMP IV SCH (18:22)
[2020-09-08] MEDS: LACTULOSE 20G/30ML UDC NG SCH (21:32)
[2020-09-08] MEDS: SENNOSIDES/DOCUSATE SOD 8.6/50MG TABLET NG SCH (21:32)
[2020-09-08] MEDS: ACETAMINOPHEN 325MG TABLET PO PRN (21:32)
[2020-09-09] VITALS (33 sets, daily range): BP systolic 78–133; BP diastolic 46–86
[2020-09-09] MEDS: DEXT 5%/0.45% NACL KCL 20MEQ/L 1,000 ML IV SCH ×3 (03:57→23:13)
[2020-09-09 05:04] LABS: BASOPHILS % 0.3 % (0.0-2.0); EOSINOPHILS % 2.7 % (0.0-5.0); HEMATOCRIT. 27.5 % (42.0-52.0); LYMPHOCYTES % 7.7 % (20.0-50.0); MEAN CORPUSCULAR HEMOGLOBIN 32.9 pg (28.0-32.0); MEAN CORPUSCULAR VOLUME 100.6 fL (80.0-94.0); MONOCYTES % 6.9 % (2.0-8.0); NEUTROPHILS % 82.4 % (40.0-76.0); PLATELET 361 x1000/uL (130-400); RED BLOOD CELL COUNT 2.73 mill/uL (4.7-6.1); RED CELL DISTRIBUTION WIDTH 16.1 % (11.6-14.6)
[2020-09-09 05:12] LABS: CHLORIDE 111 mEq/L (98-107)
[2020-09-09] MEDS: SUCRALFATE 1 G/10 ML UDC NG SCH ×3 (05:48→19:05)
[2020-09-09] MEDS: PIPERACILLIN/TAZOBACTAM 3.375 G in DEXT 5% WATER 100 ML IV SCH ×3 (05:48→19:15)
[2020-09-09] MEDS: INSULIN LISPRO 100 UNITS/ML SUBCUT SCH ×4 (06:00→18:00)
[2020-09-09] MEDS: BLOOD SUGAR DIAGNOSTIC STRIP TEST SCH ×4 (06:00→18:00)
[2020-09-09] MEDS: LORAZEPAM 2MG/ML CPJ IV PRN (06:03)
[2020-09-09] MEDS: METOPROLOL TARTRATE 25MG TABLET PO SCH ×2 (09:00→21:00)
[2020-09-09] MEDS: PANTOPRAZOLE SODIUM 40 MG/VIAL IV SCH ×2 (09:27→21:15)
[2020-09-09] MEDS: FERROUS SULFATE 300MG/5ML UDC NG SCH ×2 (09:27→17:41)
[2020-09-09] MEDS: RISPERIDONE 1MG TABLET PO SCH ×2 (09:27→17:41)
[2020-09-09] MEDS: ASCORBIC ACID 500 MG TABLET NG SCH (09:37)
[2020-09-09] MEDS: FOLIC ACID 1MG TABLET NG SCH (09:37)
[2020-09-09] MEDS: INSULIN GLARGINE UD 100 UNITS/ML SYR SUBCUT SCH ×2 (09:40→21:25)
[2020-09-09] MEDS: THIAMINE HCL 100MG TABLET PO SCH (09:40)
[2020-09-09] MEDS: MIDODRINE HCL 5MG TABLET PO SCH ×3 (09:41→17:51)
[2020-09-09] MEDS: RIFAXIMIN 550 MG TABLET PO SCH ×2 (11:51→21:17)
[2020-09-09] MEDS: LACTULOSE 20G/30ML UDC PO SCH ×2 (12:14→21:18)
[2020-09-09] MEDS: DIGOXIN 500MCG/2ML AMP IV SCH (19:05)
[2020-09-09] MEDS: SENNOSIDES/DOCUSATE SOD 8.6/50MG TABLET NG SCH (21:15)
[2020-09-10] VITALS (12 sets, daily range): BP systolic 93–115; BP diastolic 31–75
[2020-09-10] MEDS: SUCRALFATE 1 G/10 ML UDC NG SCH ×4 (02:12→18:23)
[2020-09-10] MEDS: PIPERACILLIN/TAZOBACTAM 3.375 G in DEXT 5% WATER 100 ML IV SCH ×2 (02:12→07:05)
[2020-09-10 05:51] LABS: CHLORIDE 109 mEq/L (98-107)
[2020-09-10 05:57] LABS: EOSINOPHILS % 4.2 % (0.0-5.0); HEMATOCRIT. 29.7 % (42.0-52.0); LYMPHOCYTES % 9.2 % (20.0-50.0); MEAN CORPUSCULAR HEMOGLOBIN 34.1 pg (28.0-32.0); MEAN CORPUSCULAR VOLUME 100.8 fL (80.0-94.0); MEAN PLATELET VOLUME 9.1 fl (7.4-10.4); MONOCYTES % 7.6 % (2.0-8.0); PLATELET 348 x1000/uL (130-400); RED BLOOD CELL COUNT 2.94 mill/uL (4.7-6.1); RED CELL DISTRIBUTION WIDTH 16.1 % (11.6-14.6)
[2020-09-10] MEDS: INSULIN LISPRO 100 UNITS/ML SUBCUT SCH ×4 (06:00→18:00)
[2020-09-10] MEDS: BLOOD SUGAR DIAGNOSTIC STRIP TEST SCH ×4 (06:00→18:00)
[2020-09-10] MEDS: METOPROLOL TARTRATE 25MG TABLET PO SCH ×2 (09:00→20:43)
[2020-09-10] MEDS: INSULIN GLARGINE UD 100 UNITS/ML SYR SUBCUT SCH ×2 (10:00→22:00)
[2020-09-10] MEDS: PANTOPRAZOLE SODIUM 40 MG/VIAL IV SCH ×2 (12:34→20:42)
[2020-09-10] MEDS: FERROUS SULFATE 300MG/5ML UDC NG SCH ×2 (12:35→18:23)
[2020-09-10] MEDS: ASCORBIC ACID 500 MG TABLET NG SCH (12:36)
[2020-09-10] MEDS: LACTULOSE 20G/30ML UDC PO SCH ×2 (12:36→20:42)
[2020-09-10] MEDS: FOLIC ACID 1MG TABLET NG SCH (12:36)
[2020-09-10] MEDS: MIDODRINE HCL 5MG TABLET PO SCH ×3 (12:38→19:23)
[2020-09-10] MEDS: THIAMINE HCL 100MG TABLET PO SCH (12:39)
[2020-09-10] MEDS: RIFAXIMIN 550 MG TABLET PO SCH ×2 (12:39→20:42)
[2020-09-10] MEDS: RISPERIDONE 1MG TABLET PO SCH ×2 (12:39→18:24)
[2020-09-10] MEDS: DEXT 5%/0.45% NACL KCL 20MEQ/L 1,000 ML IV SCH ×2 (12:40→19:18)
[2020-09-10] MEDS: DIGOXIN 500MCG/2ML AMP IV SCH ×3 (18:00→19:19)
[2020-09-10] MEDS: SENNOSIDES/DOCUSATE SOD 8.6/50MG TABLET NG SCH (20:42)
[2020-09-11] VITALS (12 sets, daily range): BP systolic 85–135; BP diastolic 47–68
[2020-09-11] MEDS: BLOOD SUGAR DIAGNOSTIC STRIP TEST SCH ×4 (00:18→17:14)
[2020-09-11] MEDS: SUCRALFATE 1 G/10 ML UDC NG SCH ×4 (00:43→18:09)
[2020-09-11] MEDS: DEXT 5%/0.45% NACL KCL 20MEQ/L 1,000 ML IV SCH ×2 (05:58→10:42)
[2020-09-11] MEDS: INSULIN LISPRO 100 UNITS/ML SUBCUT SCH ×4 (06:00→17:14)
[2020-09-11 06:14] LABS: CHLORIDE 109 mEq/L (98-107)
[2020-09-11 06:20] LABS: HEMATOCRIT. 30.1 % (42.0-52.0); HEMOGLOBIN. 9.9 g/dL (14.0-18.0); MEAN CORPUSCULAR HEMOGLOBIN 33.1 pg (28.0-32.0); MEAN CORPUSCULAR VOLUME 100.6 fL (80.0-94.0); MEAN PLATELET VOLUME 9.4 fl (7.4-10.4); PLATELET 365 x1000/uL (130-400)
[2020-09-11 06:21] LABS: PHOSPHORUS 2.5 mg/dL (2.5-4.9)
[2020-09-11] MEDS: METOPROLOL TARTRATE 25MG TABLET PO SCH ×2 (09:00→21:00)
[2020-09-11 09:39] LABS: PLATELET ESTIMATE NORMAL
[2020-09-11] MEDS: INSULIN GLARGINE UD 100 UNITS/ML SYR SUBCUT SCH ×2 (10:00→22:18)
[2020-09-11] MEDS: PANTOPRAZOLE SODIUM 40 MG/VIAL IV SCH ×2 (10:23→22:18)
[2020-09-11] MEDS: FOLIC ACID 1MG TABLET NG SCH (10:23)
[2020-09-11] MEDS: LACTULOSE 20G/30ML UDC PO SCH ×2 (10:23→22:17)
[2020-09-11] MEDS: THIAMINE HCL 100MG TABLET PO SCH (10:25)
[2020-09-11] MEDS: FERROUS SULFATE 300MG/5ML UDC NG SCH ×2 (10:25→18:07)
[2020-09-11] MEDS: ASCORBIC ACID 500 MG TABLET NG SCH (10:25)
[2020-09-11] MEDS: RIFAXIMIN 550 MG TABLET PO SCH ×2 (10:25→22:20)
[2020-09-11] MEDS: RISPERIDONE 1MG TABLET PO SCH ×2 (10:25→18:08)
[2020-09-11] MEDS: MIDODRINE HCL 5MG TABLET PO SCH ×3 (10:26→18:09)
[2020-09-11] MEDS ORDERED: MAGNESIUM 2 G PREMIX 50 ML IV NR (13:00)
[2020-09-11] MEDS ORDERED: DIGOXIN 125MCG TABLET PO SCH (18:00)
[2020-09-11] MEDS: SENNOSIDES/DOCUSATE SOD 8.6/50MG TABLET NG SCH (22:18)
[2020-09-12] VITALS (10 sets, daily range): BP systolic 84–129; BP diastolic 40–79
[2020-09-12] MEDS: BLOOD SUGAR DIAGNOSTIC STRIP TEST SCH ×4 (00:26→18:09)
[2020-09-12] MEDS: SUCRALFATE 1 G/10 ML UDC NG SCH ×4 (00:41→18:03)
[2020-09-12] MEDS: DEXT 5%/0.45% NACL KCL 20MEQ/L 1,000 ML IV SCH ×3 (00:41→21:16)
[2020-09-12] MEDS: INSULIN LISPRO 100 UNITS/ML SUBCUT SCH ×4 (06:00→18:00)
[2020-09-12] MEDS: METOPROLOL TARTRATE 25MG TABLET PO SCH ×4 (09:00→21:00)
[2020-09-12 09:05] LABS: CHLORIDE 110 mEq/L (98-107)
[2020-09-12] MEDS: LACTULOSE 20G/30ML UDC PO SCH ×2 (09:09→21:16)
[2020-09-12] MEDS: ASCORBIC ACID 500 MG TABLET NG SCH (09:10)
[2020-09-12] MEDS: MIDODRINE HCL 5MG TABLET PO SCH ×3 (09:10→18:03)
[2020-09-12] MEDS: RIFAXIMIN 550 MG TABLET PO SCH ×2 (09:10→21:16)
[2020-09-12] MEDS: PANTOPRAZOLE SODIUM 40 MG/VIAL IV SCH ×2 (09:10→21:16)
[2020-09-12] MEDS: FERROUS SULFATE 300MG/5ML UDC NG SCH ×2 (09:10→18:03)
[2020-09-12] MEDS: THIAMINE HCL 100MG TABLET PO SCH (09:10)
[2020-09-12] MEDS: RISPERIDONE 1MG TABLET PO SCH ×2 (09:10→18:04)
[2020-09-12] MEDS: FOLIC ACID 1MG TABLET NG SCH (09:18)
[2020-09-12 09:25] LABS: DIGOXIN 0.6 ng/mL (0.9-2.0)
[2020-09-12] MEDS: INSULIN GLARGINE UD 100 UNITS/ML SYR SUBCUT SCH (12:44)
[2020-09-12] MEDS ORDERED: DIGOXIN 500MCG/2ML AMP IV NR (14:54)
[2020-09-12] MEDS: SENNOSIDES/DOCUSATE SOD 8.6/50MG TABLET NG SCH (21:16)
[2020-09-13] VITALS (9 sets, daily range): BP systolic 82–115; BP diastolic 50–75
[2020-09-13] MEDS: SUCRALFATE 1 G/10 ML UDC NG SCH ×4 (00:16→19:02)
[2020-09-13] MEDS: INSULIN GLARGINE UD 100 UNITS/ML SYR SUBCUT SCH ×3 (00:17→22:41)
[2020-09-13] MEDS: BLOOD SUGAR DIAGNOSTIC STRIP TEST SCH ×4 (05:57→18:45)
[2020-09-13] MEDS: INSULIN LISPRO 100 UNITS/ML SUBCUT SCH ×4 (05:57→18:00)
[2020-09-13 07:17] LABS: BASOPHILS % 0.7 % (0.0-2.0); EOSINOPHILS % 3.3 % (0.0-5.0); HEMATOCRIT. 36.5 % (42.0-52.0); HEMOGLOBIN. 11.8 g/dL (14.0-18.0); LYMPHOCYTES % 10.1 % (20.0-50.0); MEAN CORPUSCULAR HEMOGLOBIN 33.6 pg (28.0-32.0); MEAN CORPUSCULAR VOLUME 103.9 fL (80.0-94.0); MEAN PLATELET VOLUME 9.6 fl (7.4-10.4); MONOCYTES % 7.7 % (2.0-8.0); NEUTROPHILS % 78.2 % (40.0-76.0); PLATELET 477 x1000/uL (130-400); RED BLOOD CELL COUNT 3.51 mill/uL (4.7-6.1)
[2020-09-13 07:23] LABS: CHLORIDE 105 mEq/L (98-107)
[2020-09-13] MEDS: DEXT 5%/0.45% NACL KCL 20MEQ/L 1,000 ML IV SCH ×3 (08:02→18:25)
[2020-09-13] MEDS: PANTOPRAZOLE SODIUM 40 MG/VIAL IV SCH ×2 (09:00→22:05)
[2020-09-13] MEDS: FERROUS SULFATE 300MG/5ML UDC NG SCH ×2 (09:02→17:12)
[2020-09-13] MEDS: ASCORBIC ACID 500 MG TABLET NG SCH (09:02)
[2020-09-13] MEDS: FOLIC ACID 1MG TABLET NG SCH (09:02)
[2020-09-13] MEDS: LACTULOSE 20G/30ML UDC PO SCH ×2 (09:03→22:05)
[2020-09-13] MEDS: METOPROLOL TARTRATE 25MG TABLET PO SCH ×2 (09:07→22:11)
[2020-09-13] MEDS: MIDODRINE HCL 5MG TABLET PO SCH ×3 (09:08→19:03)
[2020-09-13] MEDS: THIAMINE HCL 100MG TABLET PO SCH (09:09)
[2020-09-13] MEDS: RISPERIDONE 1MG TABLET PO SCH ×2 (09:09→17:13)
[2020-09-13] MEDS: RIFAXIMIN 550 MG TABLET PO SCH ×2 (09:09→22:04)
[2020-09-13] MEDS: CEFTRIAXONE 2 G in DEXTROSE 5% WATER 50 ML IV SCH ×2 (16:50→18:29)
[2020-09-13] MEDS ORDERED: VANCOMYCIN 1250MG in DEXTROSE 5% WATER 250ML IV NR (19:00)
[2020-09-13] MEDS ORDERED: LORAZEPAM 2MG/ML CPJ IV PRN (21:45)
[2020-09-13] MEDS: SENNOSIDES/DOCUSATE SOD 8.6/50MG TABLET NG SCH (22:05)
[2020-09-14] VITALS: BP 95/76
[2020-09-14] MEDS: BLOOD SUGAR DIAGNOSTIC STRIP TEST SCH ×4 (00:29→17:09)
[2020-09-14] MEDS: SUCRALFATE 1 G/10 ML UDC NG SCH ×4 (00:29→17:24)
[2020-09-14 04:00] VITALS: BP 98/59
[2020-09-14 05:56] LABS: BASOPHILS % 1.7 % (0.0-2.0); EOSINOPHILS % 5.9 % (0.0-5.0); HEMATOCRIT. 30.2 % (42.0-52.0); HEMOGLOBIN. 10.1 g/dL (14.0-18.0); LYMPHOCYTES % 7.7 % (20.0-50.0); MEAN CORPUSCULAR VOLUME 101.7 fL (80.0-94.0); MEAN PLATELET VOLUME 9.1 fl (7.4-10.4); MONOCYTES % 8.9 % (2.0-8.0); NEUTROPHILS % 75.8 % (40.0-76.0); PLATELET 380 x1000/uL (130-400); RED BLOOD CELL COUNT 2.97 mill/uL (4.7-6.1); RED CELL DISTRIBUTION WIDTH 15.3 % (11.6-14.6)
[2020-09-14 05:57] LABS: CHLORIDE 108 mEq/L (98-107)
[2020-09-14] MEDS: INSULIN LISPRO 100 UNITS/ML SUBCUT SCH ×4 (06:00→17:09)
[2020-09-14] MEDS ORDERED: VANCOMYCIN 1250MG in DEXTROSE 5% WATER 250ML IV SCH ×2 (07:00→08:00)
[2020-09-14 08:00] VITALS: BP 94/67
[2020-09-14] MEDS: METOPROLOL TARTRATE 25MG TABLET PO SCH ×2 (09:00→21:23)
[2020-09-14] MEDS: FERROUS SULFATE 300MG/5ML UDC NG SCH ×2 (09:21→17:24)
[2020-09-14] MEDS: VANCOMYCIN 1 G PREMIX 200 ML IV SCH ×2 (09:22→20:43)
[2020-09-14] MEDS: RIFAXIMIN 550 MG TABLET PO SCH (09:22)
[2020-09-14] MEDS: RISPERIDONE 1MG TABLET PO SCH ×2 (09:22→17:25)
[2020-09-14] MEDS: PANTOPRAZOLE SODIUM 40 MG/VIAL IV SCH ×2 (09:22→21:21)
[2020-09-14] MEDS: LACTULOSE 20G/30ML UDC PO SCH ×2 (09:22→21:23)
[2020-09-14] MEDS: THIAMINE HCL 100MG TABLET PO SCH (09:23)
[2020-09-14] MEDS: FOLIC ACID 1MG TABLET NG SCH (09:23)
[2020-09-14] MEDS: MIDODRINE HCL 5MG TABLET PO SCH ×3 (09:23→17:25)
[2020-09-14] MEDS: ASCORBIC ACID 500 MG TABLET NG SCH (09:23)
[2020-09-14] MEDS: INSULIN GLARGINE UD 100 UNITS/ML SYR SUBCUT SCH ×2 (11:06→21:51)
[2020-09-14 12:00] VITALS: BP 100/61
[2020-09-14] MEDS: DEXT 5%/0.45% NACL KCL 20MEQ/L 1,000 ML IV SCH ×2 (12:55→23:32)
[2020-09-14 16:00] VITALS: BP 102/67
[2020-09-14] MEDS: SENNOSIDES/DOCUSATE SOD 8.6/50MG TABLET NG SCH (21:23)
[2020-09-15] MEDS: SUCRALFATE 1 G/10 ML UDC NG SCH ×5 (00:16→23:34)
[2020-09-15] MEDS: BLOOD SUGAR DIAGNOSTIC STRIP TEST SCH ×5 (00:16→23:35)
[2020-09-15 05:34] LABS: CHLORIDE 109 mEq/L (98-107)
[2020-09-15] MEDS: INSULIN LISPRO 100 UNITS/ML SUBCUT SCH ×5 (06:00→23:35)
[2020-09-15 06:25] LABS: BASOPHILS % 1.8 % (0.0-2.0); EOSINOPHILS % 7.3 % (0.0-5.0); HEMATOCRIT. 31.2 % (42.0-52.0); HEMOGLOBIN. 10.3 g/dL (14.0-18.0); LYMPHOCYTES % 12.1 % (20.0-50.0); MEAN CORPUSCULAR HEMOGLOBIN 33.5 pg (28.0-32.0); MEAN CORPUSCULAR VOLUME 101.3 fL (80.0-94.0); MEAN PLATELET VOLUME 9.1 fl (7.4-10.4); MONOCYTES % 9.5 % (2.0-8.0); NEUTROPHILS % 69.3 % (40.0-76.0); PLATELET 354 x1000/uL (130-400); RED BLOOD CELL COUNT 3.08 mill/uL (4.7-6.1); RED CELL DISTRIBUTION WIDTH 15.4 % (11.6-14.6)
[2020-09-15 08:00] VITALS: BP 100/55
[2020-09-15] MEDS: LACTULOSE 20G/30ML UDC PO SCH ×2 (08:55→20:24)
[2020-09-15] MEDS: DEXT 5%/0.45% NACL KCL 20MEQ/L 1,000 ML IV SCH ×2 (08:55→20:24)
[2020-09-15] MEDS: PANTOPRAZOLE SODIUM 40 MG/VIAL IV SCH ×2 (08:55→20:24)
[2020-09-15] MEDS: VANCOMYCIN 1 G PREMIX 200 ML IV SCH ×2 (08:55→20:24)
[2020-09-15] MEDS: FERROUS SULFATE 300MG/5ML UDC NG SCH ×2 (08:55→17:30)
[2020-09-15] MEDS: METOPROLOL TARTRATE 25MG TABLET PO SCH ×2 (08:56→20:59)
[2020-09-15] MEDS: ASCORBIC ACID 500 MG TABLET NG SCH (08:56)
[2020-09-15] MEDS: RISPERIDONE 1MG TABLET PO SCH (08:56)
[2020-09-15] MEDS: THIAMINE HCL 100MG TABLET PO SCH (08:56)
[2020-09-15] MEDS: MIDODRINE HCL 5MG TABLET PO SCH ×3 (08:56→17:31)
[2020-09-15] MEDS: FOLIC ACID 1MG TABLET NG SCH (08:58)
[2020-09-15] MEDS: INSULIN GLARGINE UD 100 UNITS/ML SYR SUBCUT SCH ×2 (10:20→21:01)
[2020-09-15 12:00] VITALS: BP 88/61
[2020-09-15 16:00] VITALS: BP 86/66
[2020-09-15] MEDS: CEFTRIAXONE 2 G in DEXTROSE 5% WATER 50 ML IV SCH (17:30)
[2020-09-15] MEDS: RISPERIDONE 0.5MG TABLET PO SCH (17:35)
[2020-09-15 20:00] VITALS: BP 101/70
[2020-09-15] MEDS: SENNOSIDES/DOCUSATE SOD 8.6/50MG TABLET NG SCH (20:24)
[2020-09-15] MEDS: METOPROLOL TARTRATE 5MG/5ML VIAL IV PRN (22:41)
[2020-09-16] VITALS (7 sets, daily range): BP systolic 90–117; BP diastolic 42–62
[2020-09-16] MEDS: INSULIN LISPRO 100 UNITS/ML SUBCUT SCH ×4 (05:34→23:36)
[2020-09-16] MEDS: SUCRALFATE 1 G/10 ML UDC NG SCH ×3 (05:34→17:10)
[2020-09-16] MEDS: BLOOD SUGAR DIAGNOSTIC STRIP TEST SCH ×4 (05:34→23:36)
[2020-09-16 06:53] LABS: CHLORIDE 108 mEq/L (98-107)
[2020-09-16 08:05] LABS: BASOPHILS % 1.3 % (0.0-2.0); EOSINOPHILS % 5.8 % (0.0-5.0); HEMATOCRIT. 35.4 % (42.0-52.0); LYMPHOCYTES % 9.6 % (20.0-50.0); MEAN CORPUSCULAR VOLUME 106.5 fL (80.0-94.0); MEAN PLATELET VOLUME 9.8 fl (7.4-10.4); NEUTROPHILS % 74.3 % (40.0-76.0); PLATELET 263 x1000/uL (130-400); RED BLOOD CELL COUNT 3.32 mill/uL (4.7-6.1); RED CELL DISTRIBUTION WIDTH 15.9 % (11.6-14.6)
[2020-09-16] MEDS: FERROUS SULFATE 300MG/5ML UDC NG SCH ×2 (08:22→17:10)
[2020-09-16] MEDS: VANCOMYCIN 1 G PREMIX 200 ML IV SCH ×2 (08:22→20:31)
[2020-09-16] MEDS: LACTULOSE 20G/30ML UDC PO SCH ×2 (08:22→20:38)
[2020-09-16] MEDS: THIAMINE HCL 100MG TABLET PO SCH (08:22)
[2020-09-16] MEDS: PANTOPRAZOLE SODIUM 40 MG/VIAL IV SCH ×2 (08:22→20:38)
[2020-09-16] MEDS: RISPERIDONE 0.5MG TABLET PO SCH ×2 (08:22→17:11)
[2020-09-16] MEDS: FOLIC ACID 1MG TABLET NG SCH (08:23)
[2020-09-16] MEDS: MIDODRINE HCL 5MG TABLET PO SCH ×3 (08:23→17:12)
[2020-09-16] MEDS: METOPROLOL TARTRATE 25MG TABLET PO SCH ×2 (08:23→20:39)
[2020-09-16] MEDS: ASCORBIC ACID 500 MG TABLET NG SCH (08:23)
[2020-09-16] MEDS: INSULIN GLARGINE UD 100 UNITS/ML SYR SUBCUT SCH ×2 (10:00→23:13)
[2020-09-16] MEDS: DEXT 5%/0.45% NACL KCL 20MEQ/L 1,000 ML IV SCH ×3 (11:59→23:34)
[2020-09-16] MEDS: CEFTRIAXONE 2 G in DEXTROSE 5% WATER 50 ML IV SCH ×2 (16:18→16:20)
[2020-09-16] MEDS: SENNOSIDES/DOCUSATE SOD 8.6/50MG TABLET NG SCH (20:38)
[2020-09-17] VITALS (8 sets, daily range): BP systolic 83–108; BP diastolic 45–87
[2020-09-17] MEDS: SUCRALFATE 1 G/10 ML UDC NG SCH ×4 (00:06→17:50)
[2020-09-17] MEDS: DEXT 5%/0.45% NACL KCL 20MEQ/L 1,000 ML IV SCH ×2 (01:44→12:37)
[2020-09-17] MEDS: INSULIN LISPRO 100 UNITS/ML SUBCUT SCH ×3 (05:48→17:39)
[2020-09-17] MEDS: BLOOD SUGAR DIAGNOSTIC STRIP TEST SCH ×3 (05:48→17:38)
[2020-09-17] MEDS: RISPERIDONE 0.5MG TABLET PO SCH ×2 (08:33→17:50)
[2020-09-17] MEDS: FOLIC ACID 1MG TABLET NG SCH (08:33)
[2020-09-17] MEDS: THIAMINE HCL 100MG TABLET PO SCH (08:34)
[2020-09-17] MEDS: ASCORBIC ACID 500 MG TABLET NG SCH (08:34)
[2020-09-17] MEDS: MIDODRINE HCL 5MG TABLET PO SCH ×3 (08:35→17:52)
[2020-09-17] MEDS: FERROUS SULFATE 300MG/5ML UDC NG SCH ×2 (08:35→17:50)
[2020-09-17] MEDS: LACTULOSE 20G/30ML UDC PO SCH ×2 (08:35→21:28)
[2020-09-17] MEDS: VANCOMYCIN 1 G PREMIX 200 ML IV SCH ×2 (08:36→21:26)
[2020-09-17] MEDS: PANTOPRAZOLE SODIUM 40 MG/VIAL IV SCH ×2 (08:37→21:29)
[2020-09-17] MEDS: METOPROLOL TARTRATE 25MG TABLET PO SCH ×3 (09:00→21:00)
[2020-09-17] MEDS: INSULIN GLARGINE UD 100 UNITS/ML SYR SUBCUT SCH ×2 (09:59→21:35)
[2020-09-17] MEDS: ACETAMINOPHEN 325MG TABLET PO PRN (12:46)
[2020-09-17] MEDS ORDERED: ENOXAPARIN 80MG/0.8ML SYR SUBCUT SCH (14:00)
[2020-09-17] MEDS: CEFTRIAXONE 2 G in DEXTROSE 5% WATER 50 ML IV SCH (15:53)
[2020-09-17] MEDS: ENOXAPARIN 80MG/0.8ML SYR SUBCUT SCH (15:57)
[2020-09-17] MEDS: SENNOSIDES/DOCUSATE SOD 8.6/50MG TABLET NG SCH (21:28)
[2020-09-18] MEDS: ACETAMINOPHEN 325MG TABLET PO PRN (01:36)
[2020-09-18] MEDS: SUCRALFATE 1 G/10 ML UDC NG SCH ×5 (01:36→23:06)
[2020-09-18] MEDS: ENOXAPARIN 80MG/0.8ML SYR SUBCUT SCH ×2 (05:23→15:38)
[2020-09-18] MEDS: BLOOD SUGAR DIAGNOSTIC STRIP TEST SCH ×5 (05:23→23:05)
[2020-09-18] MEDS: INSULIN LISPRO 100 UNITS/ML SUBCUT SCH ×5 (05:27→23:05)
[2020-09-18 06:30] LABS: BASOPHILS % 1.3 % (0.0-2.0); EOSINOPHILS % 7.5 % (0.0-5.0); LYMPHOCYTES % 11.3 % (20.0-50.0); MEAN CORPUSCULAR HEMOGLOBIN 33.2 pg (28.0-32.0); MEAN CORPUSCULAR VOLUME 99.6 fL (80.0-94.0); MONOCYTES % 8.8 % (2.0-8.0); NEUTROPHILS % 71.1 % (40.0-76.0); PLATELET 264 x1000/uL (130-400); RED BLOOD CELL COUNT 3.01 mill/uL (4.7-6.1); RED CELL DISTRIBUTION WIDTH 15.1 % (11.6-14.6)
[2020-09-18 08:00] VITALS: BP 90/55
[2020-09-18] MEDS: PANTOPRAZOLE SODIUM 40 MG/VIAL IV SCH ×2 (08:08→20:38)
[2020-09-18] MEDS: FERROUS SULFATE 300MG/5ML UDC NG SCH ×2 (08:08→17:12)
[2020-09-18] MEDS: LACTULOSE 20G/30ML UDC PO SCH ×2 (08:08→20:37)
[2020-09-18] MEDS: THIAMINE HCL 100MG TABLET PO SCH (08:09)
[2020-09-18] MEDS: MIDODRINE HCL 5MG TABLET PO SCH ×3 (08:10→17:12)
[2020-09-18] MEDS: FOLIC ACID 1MG TABLET NG SCH (08:11)
[2020-09-18] MEDS: METOPROLOL TARTRATE 25MG TABLET PO SCH ×2 (08:11→20:38)
[2020-09-18] MEDS: VANCOMYCIN 1 G PREMIX 200 ML IV SCH (08:11)
[2020-09-18] MEDS: RISPERIDONE 0.5MG TABLET PO SCH ×2 (08:11→17:51)
[2020-09-18] MEDS: ASCORBIC ACID 500 MG TABLET NG SCH (08:13)
[2020-09-18] MEDS: INSULIN GLARGINE UD 100 UNITS/ML SYR SUBCUT SCH ×2 (09:57→22:23)
[2020-09-18 10:56] LABS: CLARITY URINE CLOUDY (CLEAR); COLOR URINE YELLOW (YELLOW); KETONES URINE NEGATIVE (NEGATIVE); LEUKOCYTE ESTERASE URINE 1+ (NEGATIVE); NITRITE URINE NEGATIVE (NEGATIVE); OCCULT BLOOD URINE NEGATIVE (NEGATIVE); PH URINE 5.5 (4.5-8.0); PROTEIN URINE TRACE (NEGATIVE); SPECIFIC GRAVITY URINE 1.011 (1.005-1.030); UROBILINOGEN URINE 0.2 E.U./dL (0.2-1.0)
[2020-09-18 12:00] VITALS: BP 93/63
[2020-09-18] MEDS ORDERED: DIGOXIN 500MCG/2ML AMP IV ONE (12:15)
[2020-09-18] MEDS: SODIUM CHLORIDE 0.9% 1,000 ML IV SCH (13:03)
[2020-09-18] MEDS: CEFTRIAXONE 2 G in DEXTROSE 5% WATER 50 ML IV SCH (15:38)
[2020-09-18 16:00] VITALS: BP 113/47
[2020-09-18] MEDS ORDERED: DIGOXIN 125MCG TABLET PO SCH (18:00)
[2020-09-18 20:00] VITALS: BP 94/68
[2020-09-18] MEDS: SENNOSIDES/DOCUSATE SOD 8.6/50MG TABLET NG SCH (20:37)
[2020-09-19] VITALS: BP 106/55
[2020-09-19] MEDS: ENOXAPARIN 80MG/0.8ML SYR SUBCUT SCH (04:34)
[2020-09-19] MEDS: SUCRALFATE 1 G/10 ML UDC NG SCH ×4 (06:08→22:05)
[2020-09-19] MEDS: INSULIN LISPRO 100 UNITS/ML SUBCUT SCH ×3 (07:00→17:07)
[2020-09-19] MEDS: BLOOD SUGAR DIAGNOSTIC STRIP TEST SCH ×3 (07:00→17:07)
[2020-09-19 07:05] LABS: EOSINOPHILS % 8.3 % (0.0-5.0); HEMATOCRIT. 31.4 % (42.0-52.0); HEMOGLOBIN. 10.5 g/dL (14.0-18.0); LYMPHOCYTES % 8.4 % (20.0-50.0); MEAN CORPUSCULAR HEMOGLOBIN 33.9 pg (28.0-32.0); MEAN PLATELET VOLUME 9.1 fl (7.4-10.4); MONOCYTES % 7.3 % (2.0-8.0); PLATELET 227 x1000/uL (130-400); RED BLOOD CELL COUNT 3.11 mill/uL (4.7-6.1); RED CELL DISTRIBUTION WIDTH 14.8 % (11.6-14.6)
[2020-09-19 07:41] LABS: DIGOXIN 0.9 ng/mL (0.9-2.0)
[2020-09-19 08:00] VITALS: BP 91/50
[2020-09-19] MEDS: PANTOPRAZOLE SODIUM 40 MG/VIAL IV SCH ×2 (08:18→22:06)
[2020-09-19] MEDS: LACTULOSE 20G/30ML UDC PO SCH ×2 (08:18→21:00)
[2020-09-19] MEDS: RISPERIDONE 0.5MG TABLET PO SCH ×2 (08:18→17:13)
[2020-09-19] MEDS: METOPROLOL TARTRATE 25MG TABLET PO SCH ×2 (08:18→21:00)
[2020-09-19] MEDS: FERROUS SULFATE 300MG/5ML UDC NG SCH ×2 (08:18→17:12)
[2020-09-19] MEDS: SODIUM CHLORIDE 0.9% 1,000 ML IV SCH (08:18)
[2020-09-19] MEDS: THIAMINE HCL 100MG TABLET PO SCH (08:19)
[2020-09-19] MEDS: ASCORBIC ACID 500 MG TABLET NG SCH (08:19)
[2020-09-19] MEDS: MIDODRINE HCL 5MG TABLET PO SCH ×3 (08:19→17:13)
[2020-09-19] MEDS: FOLIC ACID 1MG TABLET NG SCH (08:20)
[2020-09-19] MEDS: INSULIN GLARGINE UD 100 UNITS/ML SYR SUBCUT SCH ×2 (10:00→22:12)
[2020-09-19 12:00] VITALS: BP 88/46
[2020-09-19 13:08] LABS: HEMATOCRIT 33.1 % (42.0-52.0); HEMOGLOBIN 10.7 g/dL (14.0-18.0)
[2020-09-19 16:00] VITALS: BP 87/51
[2020-09-19 19:13] LABS: HEMATOCRIT 31.5 % (42.0-52.0); HEMOGLOBIN 10.5 g/dL (14.0-18.0)
[2020-09-19 20:00] VITALS: BP 118/98
[2020-09-19] MEDS: SENNOSIDES/DOCUSATE SOD 8.6/50MG TABLET NG SCH (22:06)
[2020-09-20] VITALS (7 sets, daily range): BP systolic 92–105; BP diastolic 36–58
[2020-09-20] MEDS: BLOOD SUGAR DIAGNOSTIC STRIP TEST SCH ×5 (05:13→23:27)
[2020-09-20] MEDS: SUCRALFATE 1 G/10 ML UDC NG SCH ×4 (05:13→23:38)
[2020-09-20] MEDS: SODIUM CHLORIDE 0.9% 1,000 ML IV SCH (05:13)
[2020-09-20] MEDS: INSULIN LISPRO 100 UNITS/ML SUBCUT SCH ×5 (05:15→23:48)
[2020-09-20 06:30] LABS: BASOPHILS % 1.2 % (0.0-2.0); EOSINOPHILS % 9.2 % (0.0-5.0); HEMATOCRIT. 33.4 % (42.0-52.0); HEMOGLOBIN. 11.2 g/dL (14.0-18.0); LYMPHOCYTES % 10.5 % (20.0-50.0); MEAN CORPUSCULAR HEMOGLOBIN 33.4 pg (28.0-32.0); MEAN CORPUSCULAR VOLUME 99.6 fL (80.0-94.0); MEAN PLATELET VOLUME 8.8 fl (7.4-10.4); MONOCYTES % 7.7 % (2.0-8.0); NEUTROPHILS % 71.4 % (40.0-76.0); PLATELET 244 x1000/uL (130-400); RED BLOOD CELL COUNT 3.35 mill/uL (4.7-6.1); RED CELL DISTRIBUTION WIDTH 15.3 % (11.6-14.6)
[2020-09-20 06:41] LABS: DIGOXIN 0.7 ng/mL (0.9-2.0)
[2020-09-20] MEDS: METOPROLOL TARTRATE 25MG TABLET PO SCH (09:00)
[2020-09-20] MEDS: FOLIC ACID 1MG TABLET NG SCH (09:08)
[2020-09-20] MEDS: LACTULOSE 20G/30ML UDC PO SCH ×2 (09:08→20:52)
[2020-09-20] MEDS: FERROUS SULFATE 300MG/5ML UDC NG SCH ×2 (09:08→17:23)
[2020-09-20] MEDS: ACETAMINOPHEN 325MG TABLET PO PRN (09:08)
[2020-09-20] MEDS: PANTOPRAZOLE SODIUM 40 MG/VIAL IV SCH ×2 (09:08→20:52)
[2020-09-20] MEDS: THIAMINE HCL 100MG TABLET PO SCH (09:11)
[2020-09-20] MEDS: MIDODRINE HCL 5MG TABLET PO SCH ×3 (09:11→17:23)
[2020-09-20] MEDS: RISPERIDONE 0.5MG TABLET PO SCH ×2 (09:11→17:23)
[2020-09-20] MEDS: ASCORBIC ACID 500 MG TABLET NG SCH (09:11)
[2020-09-20] MEDS: INSULIN GLARGINE UD 100 UNITS/ML SYR SUBCUT SCH (10:50)
[2020-09-20 12:54] LABS: CREATINE KINASE 18 IU/L (39-308)
[2020-09-20] MEDS: CITRIC ACID/SODIUM CITRATE SOLN 30ML UDC PO SCH ×2 (13:43→17:23)
[2020-09-20 13:46] LABS: CLARITY URINE CLEAR (CLEAR); COLOR URINE YELLOW (YELLOW); KETONES URINE NEGATIVE (NEGATIVE); LEUKOCYTE ESTERASE URINE NEGATIVE (NEGATIVE); NITRITE URINE NEGATIVE (NEGATIVE); OCCULT BLOOD URINE NEGATIVE (NEGATIVE); PROTEIN URINE NEGATIVE (NEGATIVE); SPECIFIC GRAVITY URINE 1.014 (1.005-1.030); UROBILINOGEN URINE 0.2 E.U./dL (0.2-1.0)
[2020-09-20] MEDS ORDERED: AMIODARONE HCL 150 MG in DEXT 5% WATER 100 ML IV NR (15:00)
[2020-09-20] MEDS ORDERED: AMIODARONE HCL 900 MG in DEXT 5% WATER 482 ML IV SCH (15:30)
[2020-09-20] MEDS ORDERED: ALBUMIN HUMAN 12.5GM/50ML (25%) IV NR (15:30)
[2020-09-20] MEDS: SENNOSIDES/DOCUSATE SOD 8.6/50MG TABLET NG SCH (20:53)
[2020-09-21] VITALS: BP 115/71
[2020-09-21 04:00] VITALS: BP 104/66
[2020-09-21] MEDS: SUCRALFATE 1 G/10 ML UDC NG SCH ×3 (05:40→18:05)
[2020-09-21] MEDS: BLOOD SUGAR DIAGNOSTIC STRIP TEST SCH ×3 (05:42→18:06)
[2020-09-21] MEDS: SODIUM CHLORIDE 0.9% 1,000 ML IV SCH ×2 (05:42→20:36)
[2020-09-21] MEDS: INSULIN LISPRO 100 UNITS/ML SUBCUT SCH ×3 (06:00→18:00)
[2020-09-21 06:27] LABS: BASOPHILS % 1.1 % (0.0-2.0); EOSINOPHILS % 11.6 % (0.0-5.0); HEMATOCRIT. 31.7 % (42.0-52.0); HEMOGLOBIN. 10.7 g/dL (14.0-18.0); LYMPHOCYTES % 11.8 % (20.0-50.0); MEAN CORPUSCULAR HEMOGLOBIN 33.9 pg (28.0-32.0); MEAN CORPUSCULAR VOLUME 100.3 fL (80.0-94.0); MEAN PLATELET VOLUME 8.8 fl (7.4-10.4); MONOCYTES % 7.6 % (2.0-8.0); NEUTROPHILS % 67.9 % (40.0-76.0); PLATELET 206 x1000/uL (130-400); RED BLOOD CELL COUNT 3.16 mill/uL (4.7-6.1); RED CELL DISTRIBUTION WIDTH 14.7 % (11.6-14.6)
[2020-09-21 08:00] VITALS: BP 94/62
[2020-09-21 10:31] LABS: BG BASE EXCESS -12.1 mmol/L (-2.0-2.0); BG CARBOXYHEMOGLOBIN 0.1 % (0.5-1.5); BG DEOXYHEMOGLOBIN 2.3 % (0.0-5.0); BG FRACTION INSPIRED OXYGEN 21; BG HCO3 ACT 12.1 mmol/L (22.0-26.0); BG METHEMOGLOBIN 0.2 % (0.0-1.5); BG OXYGEN SATURATION 97.7 % (92.0-98.5); BG OXYHEMOGLOBIN 97.4 % (94.0-97.0); BG PCO2 23.5 mmHg (35.0-45.0); BG PH 7.331 (7.350-7.450); BG PO2 103.6 mmHg (75.0-100.0); BG SAMPLE SITE RIGHT RADIAL; BG TOTAL HEMOGLOBIN 10.8 g/dL (12.0-18.0); BG VENT MODE ROOM AIR
[2020-09-21] MEDS: ASCORBIC ACID 500 MG TABLET NG SCH (10:31)
[2020-09-21] MEDS: FERROUS SULFATE 300MG/5ML UDC NG SCH ×2 (10:31→18:05)
[2020-09-21] MEDS: LACTULOSE 20G/30ML UDC PO SCH ×2 (10:31→20:26)
[2020-09-21] MEDS: PANTOPRAZOLE SODIUM 40 MG/VIAL IV SCH ×2 (10:31→20:25)
[2020-09-21] MEDS: CITRIC ACID/SODIUM CITRATE SOLN 30ML UDC PO SCH ×3 (10:31→18:05)
[2020-09-21] MEDS: THIAMINE HCL 100MG TABLET PO SCH (10:31)
[2020-09-21] MEDS: FOLIC ACID 1MG TABLET NG SCH (10:32)
[2020-09-21] MEDS: RISPERIDONE 0.5MG TABLET PO SCH ×2 (10:32→18:05)
[2020-09-21] MEDS: MIDODRINE HCL 5MG TABLET PO SCH ×3 (10:32→18:06)
[2020-09-21 12:00] VITALS: BP 107/43
[2020-09-21 16:00] VITALS: BP 105/60
[2020-09-21] MEDS: SENNOSIDES/DOCUSATE SOD 8.6/50MG TABLET NG SCH (20:26)
[2020-09-21] MEDS: METOPROLOL TARTRATE 25MG TABLET PO SCH (20:27)
[2020-09-22] VITALS (9 sets, daily range): BP systolic 92–210; BP diastolic 55–91
[2020-09-22] MEDS: INSULIN LISPRO 100 UNITS/ML SUBCUT SCH ×4 (06:00→18:00)
[2020-09-22] MEDS: SUCRALFATE 1 G/10 ML UDC NG SCH ×4 (06:10→18:10)
[2020-09-22 06:36] LABS: BASOPHILS % 1.3 % (0.0-2.0); EOSINOPHILS % 11.1 % (0.0-5.0); HEMATOCRIT. 31.8 % (42.0-52.0); HEMOGLOBIN. 10.5 g/dL (14.0-18.0); MEAN CORPUSCULAR HEMOGLOBIN 32.9 pg (28.0-32.0); MEAN CORPUSCULAR VOLUME 99.6 fL (80.0-94.0); MEAN PLATELET VOLUME 8.8 fl (7.4-10.4); MONOCYTES % 7.4 % (2.0-8.0); NEUTROPHILS % 66.2 % (40.0-76.0); PLATELET 222 x1000/uL (130-400); RED BLOOD CELL COUNT 3.19 mill/uL (4.7-6.1); RED CELL DISTRIBUTION WIDTH 14.7 % (11.6-14.6)
[2020-09-22] MEDS: BLOOD SUGAR DIAGNOSTIC STRIP TEST SCH ×4 (06:41→17:55)
[2020-09-22] MEDS: METOPROLOL TARTRATE 25MG TABLET PO SCH ×2 (09:00→21:00)
[2020-09-22] MEDS ORDERED: FUROSEMIDE 20MG TABLET PO SCH (09:00)
[2020-09-22] MEDS: ASCORBIC ACID 500 MG TABLET NG SCH (09:27)
[2020-09-22] MEDS: RISPERIDONE 0.5MG TABLET PO SCH ×2 (09:29→18:09)
[2020-09-22] MEDS: FOLIC ACID 1MG TABLET NG SCH (09:30)
[2020-09-22] MEDS: THIAMINE HCL 100MG TABLET PO SCH (09:30)
[2020-09-22] MEDS: MIDODRINE HCL 5MG TABLET PO SCH ×3 (09:30→17:56)
[2020-09-22] MEDS: PANTOPRAZOLE SODIUM 40 MG/VIAL IV SCH ×2 (09:30→21:16)
[2020-09-22] MEDS: CITRIC ACID/SODIUM CITRATE SOLN 30ML UDC PO SCH (09:30)
[2020-09-22] MEDS: LACTULOSE 20G/30ML UDC PO SCH ×2 (09:30→21:16)
[2020-09-22] MEDS: FERROUS SULFATE 300MG/5ML UDC NG SCH ×2 (09:31→17:56)
[2020-09-22] MEDS: SODIUM BICARBONATE 100 MEQ in SODIUM CHLORIDE 0.45% 1,000 ML IV SCH (12:01)
[2020-09-22] MEDS: SENNOSIDES/DOCUSATE SOD 8.6/50MG TABLET NG SCH (21:16)
[2020-09-23] VITALS (9 sets, daily range): BP systolic 92–127; BP diastolic 45–83
[2020-09-23] MEDS: SODIUM BICARBONATE 100 MEQ in SODIUM CHLORIDE 0.45% 1,000 ML IV SCH (01:25)
[2020-09-23] MEDS: SUCRALFATE 1 G/10 ML UDC NG SCH ×4 (05:04→17:50)
[2020-09-23] MEDS: BLOOD SUGAR DIAGNOSTIC STRIP TEST SCH ×4 (05:08→17:44)
[2020-09-23] MEDS: INSULIN LISPRO 100 UNITS/ML SUBCUT SCH ×4 (05:08→18:07)
[2020-09-23 07:06] LABS: INR 1.5
[2020-09-23 07:25] LABS: PHOSPHORUS 4.8 mg/dL (2.5-4.9)
[2020-09-23 08:28] LABS: BASOPHILS % 1.1 % (0.0-2.0); HEMATOCRIT. 32.7 % (42.0-52.0); HEMOGLOBIN. 11.2 g/dL (14.0-18.0); LYMPHOCYTES % 16.2 % (20.0-50.0); MEAN CORPUSCULAR HEMOGLOBIN 34.1 pg (28.0-32.0); MEAN CORPUSCULAR VOLUME 99.7 fL (80.0-94.0); MEAN PLATELET VOLUME 8.8 fl (7.4-10.4); MONOCYTES % 7.9 % (2.0-8.0); NEUTROPHILS % 64.8 % (40.0-76.0); PLATELET 207 x1000/uL (130-400); RED BLOOD CELL COUNT 3.28 mill/uL (4.7-6.1); RED CELL DISTRIBUTION WIDTH 14.6 % (11.6-14.6)
[2020-09-23] MEDS: FERROUS SULFATE 300MG/5ML UDC NG SCH ×2 (09:17→17:49)
[2020-09-23] MEDS: PANTOPRAZOLE SODIUM 40 MG/VIAL IV SCH ×2 (09:17→21:00)
[2020-09-23] MEDS: RISPERIDONE 0.5MG TABLET PO SCH ×2 (09:17→17:49)
[2020-09-23] MEDS: LACTULOSE 20G/30ML UDC PO SCH ×2 (09:17→21:00)
[2020-09-23] MEDS: ASCORBIC ACID 500 MG TABLET NG SCH (09:18)
[2020-09-23] MEDS: THIAMINE HCL 100MG TABLET PO SCH (09:19)
[2020-09-23] MEDS: MIDODRINE HCL 5MG TABLET PO SCH ×3 (09:19→17:50)
[2020-09-23] MEDS: METOPROLOL TARTRATE 25MG TABLET PO SCH ×2 (09:20→21:00)
[2020-09-23] MEDS: FOLIC ACID 1MG TABLET NG SCH (10:12)
[2020-09-23] MEDS ORDERED: DIGOXIN 500MCG/2ML AMP IV NR (12:00)
[2020-09-23] MEDS: SENNOSIDES/DOCUSATE SOD 8.6/50MG TABLET NG SCH (21:00)
[2020-09-24] VITALS: BP 97/62
[2020-09-24] MEDS: ACETAMINOPHEN 325MG TABLET PO PRN (01:29)
[2020-09-24] MEDS: SODIUM BICARBONATE 100 MEQ in SODIUM CHLORIDE 0.45% 1,000 ML IV SCH ×3 (01:30→20:26)
[2020-09-24 04:00] VITALS: BP 105/70
[2020-09-24] MEDS ORDERED: INSULIN LISPRO 100 UNITS/ML SUBCUT SCH (04:45)
[2020-09-24] MEDS: SUCRALFATE 1 G/10 ML UDC NG SCH ×4 (05:25→17:17)
[2020-09-24 06:08] LABS: BASOPHILS % 1.3 % (0.0-2.0); EOSINOPHILS % 11.3 % (0.0-5.0); HEMATOCRIT. 31.2 % (42.0-52.0); HEMOGLOBIN. 10.2 g/dL (14.0-18.0); LYMPHOCYTES % 15.2 % (20.0-50.0); MEAN CORPUSCULAR HEMOGLOBIN 32.7 pg (28.0-32.0); MEAN CORPUSCULAR VOLUME 100.3 fL (80.0-94.0); MEAN PLATELET VOLUME 8.8 fl (7.4-10.4); MONOCYTES % 9.2 % (2.0-8.0); PLATELET 204 x1000/uL (130-400); RED BLOOD CELL COUNT 3.11 mill/uL (4.7-6.1)
[2020-09-24] MEDS: BLOOD SUGAR DIAGNOSTIC STRIP TEST SCH ×5 (07:30→20:26)
[2020-09-24] MEDS: INSULIN LISPRO 100 UNITS/ML SUBCUT SCH ×5 (07:30→20:34)
[2020-09-24 08:00] VITALS: BP 116/92
[2020-09-24] MEDS: METOPROLOL TARTRATE 25MG TABLET PO SCH ×2 (09:00→20:27)
[2020-09-24] MEDS: FOLIC ACID 1MG TABLET NG SCH (09:00)
[2020-09-24] MEDS: MIDODRINE HCL 5MG TABLET PO SCH ×3 (09:04→17:17)
[2020-09-24] MEDS: LACTULOSE 20G/30ML UDC PO SCH ×2 (09:04→20:25)
[2020-09-24] MEDS: PANTOPRAZOLE SODIUM 40 MG/VIAL IV SCH ×2 (09:04→20:25)
[2020-09-24] MEDS: RISPERIDONE 0.5MG TABLET PO SCH ×2 (09:04→17:18)
[2020-09-24] MEDS: FERROUS SULFATE 300MG/5ML UDC NG SCH ×2 (09:04→17:17)
[2020-09-24] MEDS: THIAMINE HCL 100MG TABLET PO SCH (09:04)
[2020-09-24] MEDS: ASCORBIC ACID 500 MG TABLET NG SCH (09:04)
[2020-09-24 11:53] VITALS: BP 113/63
[2020-09-24 14:00] VITALS: BP 107/57
[2020-09-24] MEDS: TRAMADOL 50MG TABLET PO PRN (15:00)
[2020-09-24 16:00] VITALS: BP 116/92
[2020-09-24] MEDS: SENNOSIDES/DOCUSATE SOD 8.6/50MG TABLET NG SCH (20:25)
[2020-09-25] MEDS: TRAMADOL 50MG TABLET PO PRN (00:14)
[2020-09-25] MEDS: SUCRALFATE 1 G/10 ML UDC NG SCH ×5 (00:34→23:11)
[2020-09-25 06:34] LABS: BASOPHILS % 1.3 % (0.0-2.0); EOSINOPHILS % 10.4 % (0.0-5.0); HEMATOCRIT. 30.3 % (42.0-52.0); HEMOGLOBIN. 10.2 g/dL (14.0-18.0); LYMPHOCYTES % 16.3 % (20.0-50.0); MEAN CORPUSCULAR HEMOGLOBIN 33.1 pg (28.0-32.0); MEAN CORPUSCULAR VOLUME 98.6 fL (80.0-94.0); MEAN PLATELET VOLUME 8.4 fl (7.4-10.4); MONOCYTES % 9.6 % (2.0-8.0); NEUTROPHILS % 62.4 % (40.0-76.0); PLATELET 221 x1000/uL (130-400); RED BLOOD CELL COUNT 3.07 mill/uL (4.7-6.1); RED CELL DISTRIBUTION WIDTH 14.4 % (11.6-14.6)
[2020-09-25] MEDS: BLOOD SUGAR DIAGNOSTIC STRIP TEST SCH ×4 (07:25→20:42)
[2020-09-25] MEDS: INSULIN LISPRO 100 UNITS/ML SUBCUT SCH ×4 (07:25→20:51)
[2020-09-25 08:00] VITALS: BP 97/70
[2020-09-25] MEDS: LACTULOSE 20G/30ML UDC PO SCH ×2 (08:23→20:39)
[2020-09-25] MEDS: FERROUS SULFATE 300MG/5ML UDC NG SCH ×2 (08:23→17:13)
[2020-09-25] MEDS: PANTOPRAZOLE SODIUM 40 MG/VIAL IV SCH ×2 (08:23→20:39)
[2020-09-25] MEDS: METOPROLOL TARTRATE 25MG TABLET PO SCH ×2 (08:24→20:42)
[2020-09-25] MEDS: THIAMINE HCL 100MG TABLET PO SCH (08:25)
[2020-09-25] MEDS: ASCORBIC ACID 500 MG TABLET NG SCH (08:25)
[2020-09-25] MEDS: FOLIC ACID 1MG TABLET NG SCH (08:25)
[2020-09-25] MEDS: RISPERIDONE 0.5MG TABLET PO SCH ×2 (08:25→17:14)
[2020-09-25] MEDS: MIDODRINE HCL 5MG TABLET PO SCH ×3 (08:25→17:14)
[2020-09-25 12:00] VITALS: BP 97/72
[2020-09-25 16:00] VITALS: BP 96/74
[2020-09-25 20:00] VITALS: BP 106/46
[2020-09-25] MEDS: SENNOSIDES/DOCUSATE SOD 8.6/50MG TABLET NG SCH (20:39)
[2020-09-25 22:00] VITALS: BP 99/59
[2020-09-26] VITALS: BP 144/68
[2020-09-26 04:00] VITALS: BP 93/55
[2020-09-26] MEDS: SUCRALFATE 1 G/10 ML UDC NG SCH ×3 (05:19→18:22)
[2020-09-26 06:54] LABS: HEMOGLOBIN. 10.7 g/dL (14.0-18.0); LYMPHOCYTES % 14.2 % (20.0-50.0); MEAN CORPUSCULAR HEMOGLOBIN 33.1 pg (28.0-32.0); MEAN CORPUSCULAR VOLUME 98.9 fL (80.0-94.0); MEAN PLATELET VOLUME 8.2 fl (7.4-10.4); MONOCYTES % 9.3 % (2.0-8.0); NEUTROPHILS % 66.5 % (40.0-76.0); PLATELET 240 x1000/uL (130-400); RED BLOOD CELL COUNT 3.23 mill/uL (4.7-6.1); RED CELL DISTRIBUTION WIDTH 14.5 % (11.6-14.6)
[2020-09-26] MEDS: INSULIN LISPRO 100 UNITS/ML SUBCUT SCH ×4 (07:30→21:00)
[2020-09-26] MEDS: BLOOD SUGAR DIAGNOSTIC STRIP TEST SCH ×4 (07:50→21:00)
[2020-09-26 08:00] VITALS: BP 89/41
[2020-09-26] MEDS: PANTOPRAZOLE SODIUM 40 MG/VIAL IV SCH ×2 (08:28→21:56)
[2020-09-26] MEDS: FERROUS SULFATE 300MG/5ML UDC NG SCH ×2 (08:28→18:12)
[2020-09-26] MEDS: LACTULOSE 20G/30ML UDC PO SCH ×2 (08:28→21:56)
[2020-09-26] MEDS: THIAMINE HCL 100MG TABLET PO SCH (08:28)
[2020-09-26] MEDS: RISPERIDONE 0.5MG TABLET PO SCH ×2 (08:29→18:12)
[2020-09-26] MEDS: MIDODRINE HCL 5MG TABLET PO SCH ×3 (08:31→18:13)
[2020-09-26] MEDS: ASCORBIC ACID 500 MG TABLET NG SCH (08:39)
[2020-09-26] MEDS: FOLIC ACID 1MG TABLET NG SCH (08:39)
[2020-09-26] MEDS: METOPROLOL TARTRATE 25MG TABLET PO SCH ×2 (09:00→21:00)
[2020-09-26] MEDS ORDERED: SODIUM POLYSTYRENE SULFONATE 15 G/60 ML BOT PO NR (11:45)
[2020-09-26 12:00] VITALS: BP 83/65
[2020-09-26 16:00] VITALS: BP 92/67
[2020-09-26] MEDS: APIXABAN 5 MG TABLET PO SCH (18:12)
[2020-09-26 20:00] VITALS: BP 105/71
[2020-09-26] MEDS: SENNOSIDES/DOCUSATE SOD 8.6/50MG TABLET NG SCH (21:56)
[2020-09-27] VITALS: BP 96/74
[2020-09-27] MEDS: SUCRALFATE 1 G/10 ML UDC NG SCH ×3 (00:20→12:00)
[2020-09-27 04:00] VITALS: BP 82/69
[2020-09-27] MEDS: INSULIN LISPRO 100 UNITS/ML SUBCUT SCH ×4 (07:30→20:55)
[2020-09-27] MEDS: BLOOD SUGAR DIAGNOSTIC STRIP TEST SCH ×4 (07:30→20:55)
[2020-09-27 08:00] VITALS: BP 118/94
[2020-09-27] MEDS: ASCORBIC ACID 500 MG TABLET NG SCH (09:00)
[2020-09-27] MEDS: METOPROLOL TARTRATE 25MG TABLET PO SCH ×2 (09:00→20:54)
[2020-09-27] MEDS: FOLIC ACID 1MG TABLET NG SCH (09:00)
[2020-09-27] MEDS: LACTULOSE 20G/30ML UDC PO SCH ×2 (09:00→20:49)
[2020-09-27 12:00] VITALS: BP 100/65
[2020-09-27] MEDS: FERROUS SULFATE 300MG/5ML UDC NG SCH ×2 (13:28→17:00)
[2020-09-27] MEDS: PANTOPRAZOLE SODIUM 40 MG/VIAL IV SCH ×2 (13:28→20:49)
[2020-09-27] MEDS: APIXABAN 5 MG TABLET PO SCH ×2 (13:28→18:18)
[2020-09-27] MEDS: THIAMINE HCL 100MG TABLET PO SCH (13:29)
[2020-09-27] MEDS: RISPERIDONE 0.5MG TABLET PO SCH ×2 (13:29→18:18)
[2020-09-27] MEDS: MIDODRINE HCL 5MG TABLET PO SCH ×2 (13:45→18:23)
[2020-09-27 16:00] VITALS: BP 99/58
[2020-09-27] MEDS: AMOXICILLIN/POTASSIUM CLAVULANATE 500/125MG TAB PO SCH ×2 (18:18→23:07)
[2020-09-27] MEDS: DOXYCYCLINE HYCLATE 100MG CAPSULE PO SCH (18:18)
[2020-09-27 20:00] VITALS: BP 94/62
[2020-09-27] MEDS: SENNOSIDES/DOCUSATE SOD 8.6/50MG TABLET NG SCH (20:50)
[2020-09-28] VITALS: BP 100/47
[2020-09-28 04:00] VITALS: BP 104/59
[2020-09-28] MEDS: ACETAMINOPHEN 325MG TABLET PO PRN (04:34)
[2020-09-28 06:34] LABS: BASOPHILS % 0.5 % (0.0-2.0); EOSINOPHILS % 10.6 % (0.0-5.0); HEMATOCRIT. 29.6 % (42.0-52.0); HEMOGLOBIN. 9.7 g/dL (14.0-18.0); MEAN CORPUSCULAR HEMOGLOBIN 32.2 pg (28.0-32.0); MEAN PLATELET VOLUME 7.9 fl (7.4-10.4); MONOCYTES % 7.3 % (2.0-8.0); NEUTROPHILS % 70.6 % (40.0-76.0); PLATELET 256 x1000/uL (130-400); RED BLOOD CELL COUNT 3.02 mill/uL (4.7-6.1); RED CELL DISTRIBUTION WIDTH 14.5 % (11.6-14.6)
[2020-09-28] MEDS: BLOOD SUGAR DIAGNOSTIC STRIP TEST SCH ×4 (07:10→21:00)
[2020-09-28] MEDS: INSULIN LISPRO 100 UNITS/ML SUBCUT SCH ×4 (07:10→21:00)
[2020-09-28 08:24] VITALS: BP 90/61
[2020-09-28] MEDS: METOPROLOL TARTRATE 25MG TABLET PO SCH ×2 (09:00→20:46)
[2020-09-28] MEDS: LACTULOSE 20G/30ML UDC PO SCH ×2 (09:00→20:46)
[2020-09-28] MEDS: RISPERIDONE 0.5MG TABLET PO SCH ×2 (09:17→17:53)
[2020-09-28] MEDS: ASCORBIC ACID 500 MG TABLET PO SCH (09:17)
[2020-09-28] MEDS: APIXABAN 5 MG TABLET PO SCH ×2 (09:18→17:50)
[2020-09-28] MEDS: FOLIC ACID 1MG TABLET PO SCH (09:18)
[2020-09-28] MEDS: MIDODRINE HCL 5MG TABLET PO SCH (09:18)
[2020-09-28] MEDS: AMOXICILLIN/POTASSIUM CLAVULANATE 500/125MG TAB PO SCH ×2 (09:22→20:46)
[2020-09-28] MEDS: DOXYCYCLINE HYCLATE 100MG CAPSULE PO SCH ×2 (09:22→17:49)
[2020-09-28] MEDS: THIAMINE HCL 100MG TABLET PO SCH (09:22)
[2020-09-28 12:05] VITALS: BP 105/61
[2020-09-28 15:44] VITALS: BP 123/70
[2020-09-28 20:00] VITALS: BP 110/71
[2020-09-28] MEDS: METOPROLOL TARTRATE 5MG/5ML VIAL IV PRN (22:46)
[2020-09-29] VITALS (7 sets, daily range): BP systolic 89–101; BP diastolic 58–66
[2020-09-29] MEDS: BLOOD SUGAR DIAGNOSTIC STRIP TEST SCH ×3 (06:21→17:10)
[2020-09-29] MEDS: INSULIN LISPRO 100 UNITS/ML SUBCUT SCH ×3 (06:22→17:10)
[2020-09-29 07:52] LABS: PHOSPHORUS 5.4 mg/dL (2.5-4.9)
[2020-09-29] MEDS: RISPERIDONE 0.5MG TABLET PO SCH ×2 (08:44→18:13)
[2020-09-29] MEDS: AMOXICILLIN/POTASSIUM CLAVULANATE 500/125MG TAB PO SCH (08:44)
[2020-09-29] MEDS: DOXYCYCLINE HYCLATE 100MG CAPSULE PO SCH ×2 (08:44→18:16)
[2020-09-29] MEDS: ASCORBIC ACID 500 MG TABLET PO SCH (08:44)
[2020-09-29] MEDS: LACTULOSE 20G/30ML UDC PO SCH (08:44)
[2020-09-29] MEDS: APIXABAN 5 MG TABLET PO SCH ×2 (08:45→18:13)
[2020-09-29] MEDS: METOPROLOL TARTRATE 25MG TABLET PO SCH (08:45)
[2020-09-29] MEDS: FOLIC ACID 1MG TABLET PO SCH (08:45)
[2020-09-29 10:53] LABS: BASOPHILS % 0.9 % (0.0-2.0); EOSINOPHILS % 5.9 % (0.0-5.0); HEMOGLOBIN. 9.5 g/dL (14.0-18.0); LYMPHOCYTES % 11.7 % (20.0-50.0); MEAN CORPUSCULAR VOLUME 97.3 fL (80.0-94.0); MEAN PLATELET VOLUME 8.1 fl (7.4-10.4); MONOCYTES % 9.3 % (2.0-8.0); NEUTROPHILS % 72.2 % (40.0-76.0); PLATELET 247 x1000/uL (130-400); RED BLOOD CELL COUNT 2.87 mill/uL (4.7-6.1); RED CELL DISTRIBUTION WIDTH 14.3 % (11.6-14.6)
[2020-09-29] MEDS ORDERED: METOPROLOL TARTRATE 25MG TABLET PO SCH (21:00)
== END 2020-09-29 19:44 | DRG 710 ==
LOC: MICUNO 19:56 → 5EST 09-09 13:47 → 8WST 09-27 11:20
PROVIDERS: ADMIT Internal Medicine; ATTEND Internal Medicine
PROC: 5A1955Z Respiratory Ventilation, Greater than 96 Consecutive Hours (ICD-10-PCS; 2020-08-26)
PROC: 0BH17EZ Insertion of Endotracheal Airway into Trachea, Via Natural or Artificial Opening (ICD-10-PCS; 2020-08-26)
PROC: 0DTF0ZZ Resection of Right Large Intestine, Open Approach (ICD-10-PCS; principal; 2020-08-27)
PROC: 0W9G3ZZ Drainage of Peritoneal Cavity, Percutaneous Approach (ICD-10-PCS; 2020-08-27)
PROC: 0D1B0Z4 Bypass Ileum to Cutaneous, Open Approach (ICD-10-PCS; 2020-08-27)
PROC: 30233K1 Transfusion of Nonautologous Frozen Plasma into Peripheral Vein, Percutaneous Approach (ICD-10-PCS; 2020-08-28)
PROC: 30233N1 Transfusion of Nonautologous Red Blood Cells into Peripheral Vein, Percutaneous Approach (ICD-10-PCS; 2020-08-28)
PROC: 4A10X4Z Monitoring of Central Nervous Electrical Activity, External Approach (ICD-10-PCS; 2020-08-31)
PROC: 0W9G0ZZ Drainage of Peritoneal Cavity, Open Approach (ICD-10-PCS; 2020-09-07)
PROC: 0WQF0ZZ Repair Abdominal Wall, Open Approach (ICD-10-PCS; 2020-09-07)
PROC: 05HY33Z Insertion of Infusion Device into Upper Vein, Percutaneous Approach (ICD-10-PCS; 2020-09-09)
PROC: B54NZZA Ultrasonography of Left Upper Extremity Veins, Guidance (ICD-10-PCS; 2020-09-09)
PROC: 02HV33Z Insertion of Infusion Device into Superior Vena Cava, Percutaneous Approach (ICD-10-PCS; 2020-09-27)
PROC: B548ZZA Ultrasonography of Superior Vena Cava, Guidance (ICD-10-PCS; 2020-09-27)
DX: A41.9 Sepsis, unspecified organism (principal); R65.21 Severe sepsis with septic shock; J96.01 Acute respiratory failure with hypoxia; N17.0 Acute kidney failure with tubular necrosis; E43 Unspecified severe protein-calorie malnutrition; G93.41 Metabolic encephalopathy; I96 Gangrene, not elsewhere classified; I50.23 Acute on chronic systolic (congestive) heart failure; I42.9 Cardiomyopathy, unspecified; I48.20 Chronic atrial fibrillation, unspecified; J18.9 Pneumonia, unspecified organism; K85.90 Acute pancreatitis without necrosis or infection, unspecified; K55.9 Vascular disorder of intestine, unspecified; K63.89 Other specified diseases of intestine; D53.9 Nutritional anemia, unspecified; D69.6 Thrombocytopenia, unspecified; K70.31 Alcoholic cirrhosis of liver with ascites; E83.39 Other disorders of phosphorus metabolism; E83.42 Hypomagnesemia; E87.1 Hypo-osmolality and hyponatremia; E87.2 Acidosis; D68.4 Acquired coagulation factor deficiency; E87.6 Hypokalemia; F10.10 Alcohol abuse, uncomplicated; K56.7 Ileus, unspecified; I87.8 Other specified disorders of veins; E66.01 Morbid (severe) obesity due to excess calories; R74.01 Elevation of levels of liver transaminase levels; T81.49XA Infection following a procedure, other surgical site, initial encounter; T81.32XA Disruption of internal operation (surgical) wound, not elsewhere classified, initial encounter; L03.311 Cellulitis of abdominal wall; Y83.8 Other surgical procedures as the cause of abnormal reaction of the patient, or of later complication, without mention of misadventure at the time of the procedure; Z20.822 Contact with and (suspected) exposure to COVID-19; K59.39 Other megacolon; K66.0 Peritoneal adhesions (postprocedural) (postinfection); K76.6 Portal hypertension; K82.8 Other specified diseases of gallbladder; Z93.3 Colostomy status; Z93.2 Ileostomy status; Z78.1 Physical restraint status; Y92.89 Other specified places as the place of occurrence of the external cause
CPT/HCPCS: 36415; 36600; 70551; 71045; 74174; 74176; 76700; 76705; 76937; 78278; 80048; 80053; 80076; 80162; 80202; 81003; 82140; 82248; 82375; 82550; 82607; 82728; 82746; 82805; 82962; 83036; 83540; 83550; 83605; 83735; 83880; 84100; 84145; 84439; 84443; 84481; 85014; 85018; 85025; 85049; 85384; 86850; 86900; 86920; 86927; 87070; 87075; 87426; 88108; 88305; 88307; 92610; 93005; 93306; 93970; 94002; 94003; 94640; 95816; 97110; 97116; 97162; 97164; 97167; 97168; 97530; 97535; A6261; A9560; C1725; C9113; J0282; J0692; J0696; J1100; J1160; J1170; J1650; J1815; J2060; J2270; J2370; J2543; J2710; J3370; J3475; J3480; J3490; J7030; J7040; J7050; J7060; P9016; P9017; P9047; Q9967

== ENCOUNTER 2021-02-22 16:58 | Inpatient (IN) | payer MEDICAID ==
[~2021-02-22] VITALS: Ht 177.8 cm; Wt 86.6 kg
[2021-02-22 18:29] LABS: BASOPHILS % 0.9 % (0.0-2.0); EOSINOPHILS % 9.3 % (0.0-5.0); HEMATOCRIT. 33.4 % (42.0-52.0); HEMOGLOBIN. 11.3 g/dL (14.0-18.0); LYMPHOCYTES % 31.2 % (20.0-50.0); MEAN CORPUSCULAR HEMOGLOBIN 30.9 pg (28.0-32.0); MEAN CORPUSCULAR VOLUME 91.3 fL (80.0-94.0); MEAN PLATELET VOLUME 9.2 fl (7.4-10.4); MONOCYTES % 14.4 % (2.0-8.0); NEUTROPHILS % 44.2 % (40.0-76.0); PLATELET 139 x1000/uL (130-400); RED BLOOD CELL COUNT 3.66 mill/uL (4.7-6.1); RED CELL DISTRIBUTION WIDTH 15.7 % (11.6-14.6)
[2021-02-22 18:35] LABS: CHLORIDE 108 mEq/L (98-107)
[2021-02-22 20:08] LABS: CLARITY URINE CLEAR (CLEAR); COLOR URINE YELLOW (YELLOW); KETONES URINE NEGATIVE (NEGATIVE); LEUKOCYTE ESTERASE URINE NEGATIVE (NEGATIVE); NITRITE URINE NEGATIVE (NEGATIVE); OCCULT BLOOD URINE NEGATIVE (NEGATIVE); PROTEIN URINE NEGATIVE (NEGATIVE); SPECIFIC GRAVITY URINE 1.019 (1.005-1.030); UROBILINOGEN URINE 0.2 E.U./dL (0.2-1.0)
[2021-02-22 20:14] LABS: INR 1.2; PROTHROMBIN TIME 13.1 sec (9.6-11.0)
[2021-02-23] VITALS (7 sets, daily range): BP systolic 100–146; BP diastolic 52–80
[2021-02-23] MEDS ORDERED: MAGNESIUM/ALUMINUM HYDROXIDE/SIMETHICONE 30ML UDC PO PRN (00:30)
[2021-02-23] MEDS ORDERED: ONDANSETRON HCL 4MG/2ML INJ IV PRN (00:30)
[2021-02-23] MEDS ORDERED: ACETAMINOPHEN 325MG TABLET PO PRN (00:30)
[2021-02-23] MEDS ORDERED: DIPHENHYDRAMINE 50MG/ML VIAL IV PRN (00:30)
[2021-02-23] MEDS: PANTOPRAZOLE SODIUM 40 MG/VIAL IV SCH ×3 (02:24→21:08)
[2021-02-23] MEDS ORDERED: AMIN30LI2 PO (02:57)
[2021-02-23] MEDS ORDERED: CLON0.2T PO (02:57)
[2021-02-23] MEDS ORDERED: FERR325T6 PO (02:57)
[2021-02-23] MEDS ORDERED: METO25TA6 MT (02:57)
[2021-02-23] MEDS ORDERED: ACET650S27 RC (02:57)
[2021-02-23] MEDS ORDERED: ASCO500C18 MT (02:57)
[2021-02-23] MEDS ORDERED: INSU100V37 SQ (02:57)
[2021-02-23] MEDS ORDERED: FAMO-135 MT (02:57)
[2021-02-23] MEDS ORDERED: B25 PO (02:57)
[2021-02-23] MEDS ORDERED: IPRA3AMP9 HHN (02:57)
[2021-02-23] MEDS ORDERED: LACT10SO7 MT (02:57)
[2021-02-23] MEDS ORDERED: POTA20TA30 PO (02:57)
[2021-02-23] MEDS: SODIUM CHLORIDE 0.9% 1,000 ML IV SCH ×2 (03:34→21:08)
[2021-02-23 07:42] LABS: HEMOGLOBIN 12.2 g/dL (14.0-18.0); MEAN CORPUSCULAR HEMOGLOBIN 31.1 pg (28.0-32.0); MEAN CORPUSCULAR VOLUME 92.2 fL (80.0-94.0); PLATELET 124 x1000/uL (130-400); RED BLOOD CELL COUNT 3.91 mill/uL (4.7-6.1)
[2021-02-23] MEDS ORDERED: DEXTROSE 50% WATER 50ML SYRINGE IV PRN (10:00)
[2021-02-23] MEDS: ACETAMINOPHEN 325MG TABLET PO PRN (10:20)
[2021-02-23] MEDS: BLOOD SUGAR DIAGNOSTIC STRIP TEST SCH ×3 (12:20→21:00)
[2021-02-23] MEDS: INSULIN LISPRO 100 UNITS/ML SUBCUT SCH ×3 (12:50→21:00)
[2021-02-24] VITALS: BP 109/68
[2021-02-24 04:00] VITALS: BP 120/70
[2021-02-24] MEDS: BLOOD SUGAR DIAGNOSTIC STRIP TEST SCH ×4 (06:50→21:21)
[2021-02-24] MEDS: ACETAMINOPHEN 325MG TABLET PO PRN ×2 (06:51→21:15)
[2021-02-24] MEDS: INSULIN LISPRO 100 UNITS/ML SUBCUT SCH ×4 (07:50→21:00)
[2021-02-24 08:00] VITALS: BP 104/62
[2021-02-24 08:23] LABS: HEMOGLOBIN 11.4 g/dL (14.0-18.0); MEAN CORPUSCULAR VOLUME 92.1 fL (80.0-94.0); PLATELET 125 x1000/uL (130-400); RED BLOOD CELL COUNT 3.69 mill/uL (4.7-6.1); RED CELL DISTRIBUTION WIDTH 15.5 % (11.6-14.6)
[2021-02-24] MEDS: PANTOPRAZOLE SODIUM 40 MG/VIAL IV SCH ×2 (09:33→21:13)
[2021-02-24 12:00] VITALS: BP 111/67
[2021-02-24 15:57] VITALS: BP 99/54
[2021-02-24] MEDS: SODIUM CHLORIDE 0.9% 1,000 ML IV SCH (17:22)
[2021-02-24 20:00] VITALS: BP 102/57
[2021-02-25] VITALS: BP 108/66
[2021-02-25] MEDS: INSULIN LISPRO 100 UNITS/ML SUBCUT SCH ×4 (06:20→20:33)
[2021-02-25] MEDS: BLOOD SUGAR DIAGNOSTIC STRIP TEST SCH ×4 (06:20→20:33)
[2021-02-25 06:27] LABS: BASOPHILS % 0.8 % (0.0-2.0); EOSINOPHILS % 7.4 % (0.0-5.0); HEMATOCRIT. 33.3 % (42.0-52.0); HEMOGLOBIN. 11.3 g/dL (14.0-18.0); LYMPHOCYTES % 35.5 % (20.0-50.0); MEAN CORPUSCULAR VOLUME 91.1 fL (80.0-94.0); MEAN PLATELET VOLUME 8.8 fl (7.4-10.4); MONOCYTES % 11.9 % (2.0-8.0); NEUTROPHILS % 44.4 % (40.0-76.0); PLATELET 121 x1000/uL (130-400); RED BLOOD CELL COUNT 3.65 mill/uL (4.7-6.1); RED CELL DISTRIBUTION WIDTH 15.3 % (11.6-14.6)
[2021-02-25 06:41] LABS: CHLORIDE 109 mEq/L (98-107)
[2021-02-25 08:00] VITALS: BP 107/61
[2021-02-25] MEDS: PANTOPRAZOLE SODIUM 40 MG/VIAL IV SCH ×2 (09:41→20:33)
[2021-02-25] MEDS ORDERED: CEFAZOLIN 1000MG PREMIX 50 ML IV ONE (11:45)
[2021-02-25 12:00] VITALS: BP 110/61
[2021-02-25] MEDS: SODIUM CHLORIDE 0.9% 1,000 ML IV SCH (12:30)
[2021-02-25] MEDS ORDERED: PROPOFOL 200MG/20ML VIAL IV ONE (12:35)
[2021-02-25] MEDS ORDERED: MEPERIDINE HCL/PF 25MG/ML CPJ IV PRN (12:45)
[2021-02-25] MEDS ORDERED: HYDROMORPHONE HCL/PF 2MG/ML CPJ IV PRN (12:45)
[2021-02-25] MEDS ORDERED: LABETALOL 5MG/ML SYR 20 MG/4 ML SYRINGE IV PRN (12:45)
[2021-02-25] MEDS ORDERED: ONDANSETRON HCL 4MG/2ML INJ IV PRN (12:45)
[2021-02-25] MEDS: ACETAMINOPHEN 325MG TABLET PO PRN (13:57)
[2021-02-25 16:00] VITALS: BP 109/61
[2021-02-25 20:00] VITALS: BP 103/59
[2021-02-26] VITALS: BP 108/55
[2021-02-26 04:00] VITALS: BP 111/60
[2021-02-26] MEDS: BLOOD SUGAR DIAGNOSTIC STRIP TEST SCH ×4 (06:42→20:30)
[2021-02-26] MEDS: ACETAMINOPHEN 325MG TABLET PO PRN ×2 (06:43→20:30)
[2021-02-26] MEDS: INSULIN LISPRO 100 UNITS/ML SUBCUT SCH ×4 (07:38→21:00)
[2021-02-26 08:00] VITALS: BP 103/55
[2021-02-26] MEDS: PANTOPRAZOLE SODIUM 40 MG/VIAL IV SCH ×2 (09:09→20:30)
[2021-02-26] MEDS: SODIUM CHLORIDE 0.9% 1,000 ML IV SCH (09:10)
[2021-02-26 15:49] VITALS: BP 108/58
[2021-02-26 20:00] VITALS: BP 109/57
== END 2021-02-26 21:15 | DRG 241 ==
LOC: ER 16:58 → 6EST 19:34 → ENRESERV 21:00
PROVIDERS: ADMIT Internal Medicine; ATTEND Internal Medicine
PROC: 0DB78ZX Excision of Stomach, Pylorus, Via Natural or Artificial Opening Endoscopic, Diagnostic (ICD-10-PCS; principal; 2021-02-25)
DX: K29.71 Gastritis, unspecified, with bleeding (principal); E43 Unspecified severe protein-calorie malnutrition; R18.8 Other ascites; I48.20 Chronic atrial fibrillation, unspecified; E11.22 Type 2 diabetes mellitus with diabetic chronic kidney disease; K74.60 Unspecified cirrhosis of liver; Z20.822 Contact with and (suspected) exposure to COVID-19; I12.9 Hypertensive chronic kidney disease with stage 1 through stage 4 chronic kidney disease, or unspecified chronic kidney disease; N18.9 Chronic kidney disease, unspecified; Z93.3 Colostomy status; Z68.27 Body mass index [BMI] 27.0-27.9, adult; I85.10 Secondary esophageal varices without bleeding
CPT/HCPCS: 36415; 71045; 74176; 80048; 80053; 81003; 82962; 83036; 85025; 85027; 86850; 86900; 87426; 88305; 88312; 88313; 99285; C9113; J0690; J2704; J7030